=== PATIENT | male | born 1965 | race Caucasian/White ===

== ENCOUNTER 2016-11-01 13:51 | Inpatient (IN) | payer OTHER ==
[~2016-11-01] VITALS: Ht 180.3 cm; Wt 80.5 kg
[2016-11-01 13:52] VITALS: BP 111/69; PULSE 63; RESP 18; O2SAT 97
--- NOTE | 2016-11-01 13:54 | ED.REPORT ---
HPI-General Illness Date of Service Nov 01, 2016 ED Provider: Dr. Sergio Gee D.O. An otherwise healthy 51 year old male presents to the ED via EMS from Urgent Care with intermittent shortness of breath onset four days ago. Associated symptoms include cough, subjective fever, chills, and body aches. He was seen at at onset and again today where he was found to be hypoxic and hypertensive. He was diagnosed with RLL pneumonia, given fluid resuscitation, and placed on ceftriaxone. His labs from today indicate a white blood count of 6.8 with 12% bands, hyponatremia at 128, and lactic acidosis at 3.0. Nursing Notes Stated Complaint: RULE OUT SEPSIS Chief Complaint: FLU/Cold Symptoms Nursing Notes Reviewed: Yes Allergies: Coded Allergies: No Known Allergies (Unverified , 11/01/16) No Active Prescriptions or Reported Meds General Time Seen by MD: 13:54 Chief Complaint Other (Shortness of Breath) Hx Obtained From: Patient Arrived By: Walk-in Sudden in Onset?: No Onset Occurred: 4 days ago Symptom Duration: Since onset Severity: Current: No pain currently Severity: Maximum: No pain Associated with: Reports: Cough, Fever Pertinent Negative: Relieved by nothing Recent Healthcare: Recent doctor visit Past Medical History Past Medical History None reported Past Surgical History None reported Smoking History Unknown if Ever Smoker Ambulatory Status Independent Review of Systems + Hypoxia and hypertension per Urgent Care Full Review of Systems Constitutional: Reports: Chills, Fever (Subjective) Respiratory: Reports: Non-productive cough, Shortness of breath GI: Denies: Vomiting Musculoskeletal: Reports: Myalgia (Body aches) Neurologic: Denies: Bladder dysfunction, Bowel dysfunction Complete sys rev & neg: except as marked. Physical Exam Vital Signs Vital Signs Date Time Temp Pulse Resp B/P Pulse Ox O2 Delivery O2 Flow Rate FiO2 11/01/16 16:04 36.4 11/01/16 15:15 36.6 11/01/16 13:52 36.7 63 18 111/69 97 Room Air Initial VS: Reviewed Head / Eyes: Atraumatic, Normocephalic ENT: Conjunctiva normal, No scleral icterus Neck: Supple, Full range of motion Skin: Warm, Dry, No cyanosis Psychiatric: Mood/affect normal, Behavior normal, Normal thought content General/Constitutional: Awake, Alert Respiratory / Chest: No respiratory distress Impressive crackles and rales in right lung Cardiovascular: Regular rhythm, Heart sounds NL Heart Rate / Rhythm: Positive: Tachycardia (Rate 110) Systolic BP 105 Neurologic: Oriented X3, Speech NL, No motor deficits, No sensory deficits Interpretation & Diagnostics INFLUENZA NEGATIVE X-RAY TWO VIEW FROM URGENT CARE 11/01/16: IMPRESSION: Right lower lobe pneumonia Dictated by: Adan Brown M.D. on 11/01/2016 at 11:04 Lab Results Interpretation Test 11/01/16 15:53 Lactic Acid Level 1.5mmol/L (0.4-2.0) Pulse Oximetry Interpretation Pulse Oximetry: Pulse ox (94%), On room air Re-Eval/Medical Decision Med Decision/Clinical Course Patient presents with signs and symptoms of sepsis: Fever, tachycardia and hypotension. He is found to have a source: Dense right lower lobe pneumonia. Plan for broad-spectrum antibiotics,. IV fluid resuscitation. Lactic acid was elevated in the urgent care. Blood pressure was low in the urgent care. We medicated with a second gram of Rocephin and 500 Zithromax. 2 L of saline were infused. Repeat lactic acid came back normal. Blood pressure was stable. We will admit for IV antibiotics and continued fluid resuscitation. Time of Eval: 16:28 Patient Status: Condition improved Re-Evaluation/Progress Note: Discussed with patient lab results, diagnosis, and plan for admit. Patient agrees with plan for care and all questions were addressed. Consultation : Referral / Consult Name: Robyn Foster MD Consulted With: Hospitalist Call Returned at: 16:12 Blocker And Polisher Gold Wheel: Agrees with eval, Agrees with plan, Accepts admit Counseled Regarding: Diagnosis, Lab results, Need for admission Discharge & Departure Primary Impression: Pneumonia Pneumonia type: due to unspecified organism Laterality: right Lung location : lower lobe of lung Qualified Code: J18.9 - Pneumonia, unspecified organism Additional Impression: Sepsis Sepsis type: sepsis due to unspecified organism Qualified Code: A41.9 - Sepsis, unspecified organism Disposition: ADMITTED TO HOSPITAL Discharge Condition All VS Reviewed: Yes Condition: Stable Referrals: Michael Eng DO (PCP) Scribe Attestation Portions of this note were transcribed by Yaritza Link. IDr. Gee, personally performed the history, physical exam, and medical decision-making; I reviewed and confirmed the accuracy of the information in the transcribed note. Signed by: Giselle Nielsen, 11/01/2016, 16:35 copies to: Michael Eng Todd P DO Nov 01, 2016 13:54 YARITZA LINK Nov 01, 2016 14:29
[2016-11-01] MEDS ORDERED: Azithromycin Inj 500 MG in Dextrose 5% w/Vial Mate 250 ML IV ONE (13:55)
[2016-11-01] MEDS ORDERED: 0.9% Sodium Chloride 1,000 ML IV SCH (13:55)
[2016-11-01] MEDS ORDERED: cefTRIAXone Inj 1,000 MG in Dextrose 5% Minibag Plus 50 ML IV ONE (14:05)
--- NOTE | 2016-11-01 16:33 | PCM.HPMED ---
Subjective Date of Service Nov 01, 2016 Primary Provider: Admitting Physician: Primary Care Physician: Michael Eng DO Attending Physician: Chief Complaint: HISTORY was OBTAINED FROM PATIENT / [facility] NOTES History of present illness 51-year-old male with dry cough/headache/weakness/chills/fevers initially seen by urgent care 1 week ago, presented again today after he fell due to weakness yesterday found to have right lower pneumonia. No recent dental procedures no dysphagia. 2 episodes of choking in the last 10 years he has upper dentures. No trauma to the right chest wall. Not bedridden. Daughter had a head cold preceding his infection. Poor eating habits lately for urination diarrhea 3 days ago but regular stools today. No pleuritic chest pain no sinus congestion no sore throat. In the ER 36.7, 111/69 in urgent care lactic acid 3, creatinine 1.25, AST 78, bandemia 12%, WBC 6.8, platelets 138. On room air. Baseline speaks succintly.normal saline, azithromycin, Rocephin Review of Systems - none of the following - lightheaded / dizziness // acid reflux / n/v // bleeding/bruising / leg swelling / change in voiding / yeast infections / rash ambulates FAMILY HX no asthma SOCIAL HX smoker half pack a day daily alcohol MEDICATIONS none Past Medical/Surgical HX Allergies Coded Allergies: No Known Allergies (Unverified , 11/01/16) PMH Social History Hx Alcohol Use: Yes (DAILY ETOH) Hx Substance Use: No Smoking Status: Unknown if Ever Smoker Exam Vital Signs Vital Sign - Last Date Time Temp Pulse Resp B/P Pulse Ox O2 Delivery O2 Flow Rate FiO2 11/01/16 16:04 36.4 11/01/16 13:52 63 18 111/69 97 Room Air Lab and Diagnostics Labs Exam on admission Room Air NAD A and O x 3 mood affect WNL NC/AT no icterus no injected eyes EOMI PERRL /no pharyngeal lesions/ no oral lesions / hearing intact Supple neck CTAB equal chest rise But significantly diminished breath sounds bilateral / no accessory muscle use / speaks in phrases/ no rrw RRR S1 S2 / no mrg / 2+ radial pulses Soft nt nd + BS no hepatosplenomegaly No edema no cyanosis no ecchymosis of lower extremities No rash / no jaundice WADE symmetrical facies procalcitonin pending lactic acid Pending repeat blood culture pending Influenza pending Sputum culture pending LFTAST elevated Imaging PROCEDURE: X-RAY CHEST, TWO VIEWS ([id number]) INDICATIONS: FEVER AND COUGH X 5 DAYS, TUBULAR BREATH SOUNDS RIGHT BASE TECHNIQUE: 2 views of the chest were acquired. COMPARISON: None. FINDINGS: Surgical changes and devices: None. Lungs and pleura: No pleural effusions or pneumothorax. Dense, lobular alveolar infiltrate right lower lobe consistent with pneumonia. Mediastinum: Mediastinal contours are normal. Heart size is normal. Bones and chest wall: No suspicious bony abnormalities. Soft tissues appear unremarkable. Assessment & Plan Active issues and reason for admission Right lower lobe pneumonia, CAP without recent evidence of acid reflux or dysphasia, with bandemia and lactic acidosis -- PPI for now, no smoking for now, monitor for any evidence of empyema, Rocephin and azithromycin DuoNeb's when necessary O2 -- Sputum culture pending urine strep pending influenza pending -- IV fluid Mild hyponatremia/elevated creatinine likely prerenal VIDAL -- IV fluid mild thrombocytopenia --hold pharmaceutic DVT prophylaxis Chronic issues known prior to admission, present on admission Smoker -When necessary nicotine Diet regular DVT prophylaxis ambulate Code full Disposition inpatient Assessment and plan were discussed with patient family. Robyn Foster MD Nov 01, 2016 16:33
[2016-11-01 16:58] VITALS: BP 113/74; PULSE 65; RESP 16; O2SAT 95
[2016-11-01 17:27] VITALS: BP 136/74; PULSE 64; RESP 18; O2SAT 93
[2016-11-01 17:29] VITALS: BP 136/74; PULSE 64; RESP 18; O2SAT 93
--- NOTE | 2016-11-01 17:30 | NUR ---
ADMIT Report received from Hilaria Walsh RN in ED/ Pt brought onto unit around 1730 via [place]. Transfer to bed, pt noticeably shaky and weak. Initial physical assessment made, no c/o pain/distress. Pt oriented to unit, room, call light. Will make "welcome" video available during shiftman. Had pt order diner, updated plan of care on board. MED REC reviewed with family at bedside, next shift notified to complete admission interventions.
[2016-11-01] MEDS ORDERED: ACET325T51 PO (18:10)
[2016-11-01] MEDS ORDERED: IBUP400T22 PO (18:12)
[2016-11-01] MEDS: 0.9% Sodium Chloride 1,000 ML IV SCH (18:32)
[2016-11-01] MEDS: Pantoprazole 20 mg ER24 Tablet PO SCH (20:34)
[2016-11-01 21:02] VITALS: BP 163/73; PULSE 94; RESP 24; O2SAT 91
[2016-11-01 21:10] VITALS: PULSE 92; RESP 24; O2SAT 93
[2016-11-01] MEDS: Albuterol 2.5 mg/3 mL Inhalation Solution NEB SCH (21:10)
[2016-11-02] VITALS (14 sets, daily range): BP systolic 141–149; BP diastolic 71–88; PULSE 76–99; RESP 26–55; O2SAT 90–95
[2016-11-02] MEDS: Albuterol 2.5 mg/3 mL Inhalation Solution NEB SCH ×6 (00:04→20:49)
[2016-11-02] MEDS: 0.9% Sodium Chloride 1,000 ML IV SCH ×2 (02:37→12:00)
[2016-11-02] MEDS ORDERED: Furosemide 10 mg/mL 4 mL Inj IVPUSH ONE (05:05)
--- NOTE | 2016-11-02 06:48 | NUR ---
Respiratory status Pt has been sickly looking all shift and tachypnic. Pt was placed on 2L via NC. Pt later was very tachypnic and SOB. No change is lung sounds. Md notified and gave order to D/C IV fluids and give X1 does of IV lasix. Urine has been dark shara all night, after receiving lasix Pts urine is now clear and pale. Pt sleeping now and respiratory rate down to 30 breaths per minute. Continues on 6L via oxy mask.
[2016-11-02] MEDS: Pantoprazole 20 mg ER24 Tablet PO SCH ×2 (07:29→21:29)
[2016-11-02] MEDS: Azithromycin Inj 500 MG in Dextrose 5% w/Vial Mate 250 ML IV SCH (07:30)
[2016-11-02 07:56] LABS: Mean Corpuscular Hemoglobin 30.9 pg (27.0-35.0); Mean Corpuscular Volume 88.2 fL (81-100)
[2016-11-02 08:21] LABS: Magnesium 1.8 mg/dL (1.6-2.6)
[2016-11-02] MEDS ORDERED: cefTRIAXone Inj 2,000 MG in Dextrose 5% Minibag Plus 50 ML IV SCH (08:30)
--- NOTE | 2016-11-02 09:19 | NUR ---
Social Work: Screening Data: Pt is a 51 y/o male admitted for pneumonia, sepsis. Pt's PCP is Dr Eng, pt's insurance is [employer]. EMR reviewed. H&P states pt uses alcohol daily, but does not list amount. SUSPENSION CORD TIER will follow up regarding alcohol use to see if a CD assessment is needed. SUSPENSION CORD TIER will continue to follow. Assessment: Pt who is independent at baseline. Plan: SUSPENSION CORD TIER will follow up with pt regarding alcohol use to see if CD assessment is needed. No other d/c planning needs anticipated at this time. SUSPENSION CORD TIER will continue to follow. SLAVA Alnozo
[2016-11-02] MEDS ORDERED: KCl 40 mEq/500 mL D5W(K 3 - 3.7 & Creat < 2) IV ONE (12:05)
--- NOTE | 2016-11-02 15:26 | PCM.PNMED ---
Subjective Date of Service Nov 02, 2016 Subjective 51-year-old male with dry cough/headache/weakness/chills/fevers initially seen by urgent care 1 week ago, presented again today after he fell due to weakness yesterday, he was found to have right lower lobe pneumonia. Patient reports doing okay this morning. Some shortness of breath, no headache , chest pain, or abdominal pain. Without oxygen and any activity his oxygen saturation drops to the mid 80s. Exam Vital Signs Vital Sign - Last Date Time Temp Pulse Resp B/P Pulse Ox O2 Delivery O2 Flow Rate FiO2 11/02/16 06:38 37.5 11/02/16 04:45 81 30 92 Nasal Cannula 2.00 11/02/16 04:20 149/78 Intake and Output 11/01/16 11/01/16 11/02/16 Cumulative From/Thru 15:00 23:00 07:00 11/01/16 13:52 - 11/02/16 06:04 Intake Total 1000 ml 1000 ml 2004 ml 4004 ml Output Total 850 ml 850 ml Balance 1000 ml 1000 ml 1154 ml 3154 ml Intake Oral 718 ml 718 ml IV Total 1000 ml 1000 ml 1286 ml 3286 ml Output Urine Total 850 ml 850 ml # Bowel Movements 1 1 Exam General: Mild distress, well-developed, well-nourished, appropriately interactive HEENT: Normocephalic, atraumatic. External ears without defect. Anicteric sclerae, moist conjunctivae, and no lid lag. Oropharynx free of erythema and cobble stoning with moist mucosa. Neck: Supple with full range of motion. No jugular venous distension. No lymphadenopathy or thyromegaly. Cardiovascular: Regular rate and rhythm with no murmurs, rubs, or gallops appreciated Pulmonary: Decreased breath sounds in right base with no crackles, wheezes, or rhonchi. Increased respiratory effort with use of accessory muscles. Abdomen: Bowel tones present. Soft, nontender, nondistended. No hepatosplenomegaly or masses appreciated. Extremities: No clubbing, cyanosis, edema, or lymphadenopathy appreciated. Skin: Normal temperature, turgor, and texture; no rash, ulcers, or subcutaneous nodules appreciated. Neurological: Cranial nerves grossly intact. Normal muscle strength, tone, and bulk. No known gait impairment. Psychiatric: Normal mood and affect. Alert and oriented to person, place, and time. IVs and Medications IV Fluids 80 mL per hour normal saline Lab and Diagnostics Result Diagram: 11/02/16 0715 Assessment & Plan 51-year-old male with dry cough, headache, weakness, fever, chills for the last week with increasing weakness and ground-level fall the day prior to admission was found to have right lower lobe pneumonia. Right lower lobe pneumonia, CAP with Sepsis -- PPI for now, no smoking for now, monitor for any evidence of empyema, Rocephin and azithromycin -- DuoNeb's when necessary O2 -- Sputum culture pending sample acquisition -- urine strep and Legionella ordered -- Viral PCR ordered -- influenza screen negative -- IV fluid normal saline at 80 mL/hour -- IV Rocephin and Azithromycin Mild hyponatremia/elevated creatinine likely prerenal VIDAL, present on admission , resolved -- IV fluid Hypokalemia -- Replace with IV potassium mild thrombocytopenia -- hold pharmaceutic DVT prophylaxis Alcohol use -- Patient reportedly drinks at least 2 alcoholic beverages per night his last drink was 6 days ago. -- CIWA protocol due to concern for withdrawal by nursing Chronic issues known prior to admission, present on admission Smoker -When necessary nicotine patch Diet regular DVT prophylaxis ambulate Code full Disposition inpatient. Pain Evaluation: Adequate Pain Control GI Prophylaxis: Proton Pump Inhibitor VTE Prophylaxis: SCDs Resuscitation Status: CPR: Attempt Resuscitation Attending Statement The patient was seen and examined together with Dr. Oliva on 11/02/2016 and I agree with the history, exam and plan as outlined in the note above. Tonja Oliva DO Nov 02, 2016 08:10 Arnie Barros MD Nov 10, 2016 13:45
--- NOTE | 2016-11-02 19:10 | NUR ---
Respiratory status Pt. tachypnic all day today with RR ranging from 30-44. Continuous pulse ox on. oxygenation ranging from 90-96% when he wears oxy mask 5-7 L. Pt. takes off mask at times stating that it is annoying and uncomfortable. Desats to 85-88 when not wearing mask. Educated patient and family on importance of keeping the mask on. Pt. states that his breathing feels better than last night, despite continued tachypnea. Alert and oriented, but displays some confusion at times. Today he was asking where his house keys were, thinking that he needed to lock the room door. Collaborated extensively with RT, charge nurse and MD and will continue to monitor.
[2016-11-02] MEDS: Albuterol-Ipratropium 3 mL Inhalation Solution NEB SCH (20:30)
[2016-11-02] MEDS: Ampicillin-Sulbactam Inj 3,000 MG in 0.9% Sodium Chloride 100 ML IV SCH (21:27)
[2016-11-02] MEDS: guaiFENesin 600 mg ER12 Tablet PO SCH (21:28)
[2016-11-03] VITALS (18 sets, daily range): BP systolic 108–171; BP diastolic 63–88; PULSE 51–110; RESP 22–55; O2SAT 87–99
[2016-11-03] MEDS: Albuterol-Ipratropium 3 mL Inhalation Solution NEB SCH ×4 (01:05→12:29)
[2016-11-03] MEDS: 0.9% Sodium Chloride 1,000 ML IV SCH ×2 (02:28→16:37)
[2016-11-03] MEDS: Ampicillin-Sulbactam Inj 3,000 MG in 0.9% Sodium Chloride 100 ML IV SCH ×2 (02:41→08:39)
--- NOTE | 2016-11-03 05:36 | NUR ---
Febrile Status Pt febrile at beginning of shift. Very tachypnic at 55 breaths per minute and quite diaphoretic. Temp 39.6. Pt was given Tylenol and fan was turned on and bed linen removed. Pts temp decreased minimally to 38.9 but shortly after caleb to 39.1. Wet washcloths used to cool Pt. Md notified and gave order for new antibiotic and to give ibuprofen. Interventions decreased temperature to 37.8, and eventually to 36.4 Pt reports feeling significantly better.
[2016-11-03 06:42] LABS: BASOPHILS % (AUTO) 0.1 % (0-3); EOSINOPHILS % (AUTO) 0.9 % (0-5); MONOCYTES % (AUTO) 3.6 % (4-12); Mean Corpuscular Hemoglobin 31.1 pg (27.0-35.0); Mean Corpuscular Volume 88.1 fL (81-100); NEUTROPHILS % (AUTO) 86.9 % (40-74); Platelet Count 144 bil/L (150-400)
[2016-11-03] MEDS ORDERED: 0.9% Sodium Chloride 250 ML ONE ×2 (08:23→22:20)
[2016-11-03] MEDS ORDERED: KCl 40 mEq/D5W 500 mL 40 MEQ in IV Premix 1 EACH IV ONE (08:30)
[2016-11-03] MEDS: guaiFENesin 600 mg ER12 Tablet PO SCH ×2 (08:36→20:41)
[2016-11-03] MEDS: Multivit-Miner-Folic Acid-Iron Tablet PO SCH (08:36)
[2016-11-03] MEDS: Pantoprazole 20 mg ER24 Tablet PO SCH ×2 (08:36→20:41)
[2016-11-03] MEDS: Azithromycin Inj 500 MG in Dextrose 5% w/Vial Mate 250 ML IV SCH (08:40)
--- NOTE | 2016-11-03 08:46 | DRSVH ---
PROCEDURE: X-RAY CHEST ONE VIEW, PORTABLE ([id number]) INDICATIONS: RLL pneumonia TECHNIQUE: One view of the chest was acquired. COMPARISON: [facility], CR, XR CHEST 2VW, 11/01/2016, 10:34. FINDINGS: Surgical changes and devices: None. Lungs and pleura: Interval increase in diffuse air space opacity within the right lung and left lung remains clear. Small right pleural effusion is likely present suggesting parapneumonic effusion. Mediastinum: Mediastinal contours appear normal. Heart size is normal. Bones and chest wall: No suspicious bony lesions. Overlying soft tissues appear unremarkable. IMPRESSION: Increasing diffuse airspace opacity throughout the right lung suggesting worsening pneumo svetlana. Dictated by: Blake Stubbs RRA Interpreted: Dread Royal MD on 11/03/2016 at 8:44 Transcribed by: JASMEET on 11/03/2016 at 8:45 Approved by: Dread Royal M.D. on 11/03/2016 at 9:04
[2016-11-03] MEDS: cefTRIAXone 2,000 mg/D5W 50 mL IV Minibag Plus IV SCH ×2 (12:49)
--- NOTE | 2016-11-03 14:26 | ABG ---
DateTimeAnalyzed 14:20:00 -_ pH ____7.442 - 7.350 7.450 pCO2 ___34.1__ -mmHg 35.0 45.0 pO2 ___51.6__ -mmHg 69.0 116 HCO3- ___22.9__ -mmol/L 22.0 26.0 ABE ___-0.1__ -mmol/L -2.0 2.0 tHb ___15.0__ -g/dL O2Hb ___86.0__ -% COHb ____1.0__ -% MetHb ____1.0__ -% sO2 ___87.8__ -% 25.0 FIO2 __100.0__ -% Drawn By JJ - Date/Time Notified____ 14:26:00 -_ Spontaneous_RR ___55.0__ -b/min Liter_Flow ___15.0__ -L/min Oxygen Device 1 NON RE-TERRI - Notified By JJ - Notified Whom __DR LINK - B 745 -mmHg tO2 ___18.1__ -Vol% Tello test N/A -
--- NOTE | 2016-11-03 14:27 | NUR ---
Respiratory distress Pt satting in the 70's on 7L Oxymask, Dr Zamora and Dr Myers in room, as well as pt's . Oximeter probes changed to 1 finger probe and 1 ear probe, sats continue to be difficult to recover. Stat CXR and stat ABGs ordered, pt switched to NRB, o2 needs up to 13L/min. coagulant dipper present. RR in 50's, pt's lips pale, and pt having sigfnificant rigors, ax temp 39.0, 650mg PO APAP given. Supraclavicular, suprasternal, and subcostal retractions noted. Sats up to 92% on 13L NRP, rigors decreased. Plan to transfer to 2015, aware
--- NOTE | 2016-11-03 14:31 | DRSVH ---
PROCEDURE: X-RAY CHEST ONE VIEW, PORTABLE ([id number]) INDICATIONS: increased O2 need TECHNIQUE: One view of the chest was acquired. COMPARISON: [facility], CR, XR CHEST 2VW, 11/01/2016, 10:34. [facility], CR , XR CHEST 1VW (PORTABLE), 11/02/2016, 20:36. FINDINGS: Surgical changes and devices: None. Lungs and pleura: There are increased bilateral airspace opacities consistent with worsening of pneu monia. Persistent right lower lobe consolidation possible small right pleural effusion. No pneumothor ax. Mediastinum: Mediastinal contours appear normal. Heart size is normal. Bones and chest wall: No suspicious bony lesions. Overlying soft tissues appear unremarkable. IMPRESSION: Progressive worsening of bilateral pneumonia. Dictated by: Dread Royal M.D. on 11/03/2016 at 14:22 Approved by: Dread Royal M.D. on 11/03/2016 at 14:30
--- NOTE | 2016-11-03 15:28 | NUR ---
RETAIL ROUTE SUPERVISOR consult received. Evaluation on hold as pt is being transferred to CCU. RETAIL ROUTE SUPERVISOR will follow and evaluate when pt is appropriate.
--- NOTE | 2016-11-03 15:42 | NUR ---
Transfer Transferred to 2014, report given to Mary Avilez, family aware of transfer.
[2016-11-03] MEDS ORDERED: 0.9% Sodium Chloride 250 ML IV ONE (16:05)
--- NOTE | 2016-11-03 17:12 | DRSVH ---
[facility] [address] [place] [address] Echocardiogram Report Name: SERENA HAGEN te: 11/03/2016 Height: 71 in Hospital Exam Location: [facility] Weight: 184 lb Gender: Male BSA: 2.0 m2 : 1965 Age: 51 yrs BP: 129/63 mmHg Reason For Study: TACHYPNEIC Ordering Physician: Performed By: Cristy Phillips Referring Physician: Michael Eng Interpretation Summary The left ventricle is normal in size. The ejection fraction is estimated to be 50-55%. Wall motions as stated below. The right ventricle is normal in size and function. There is mild mitral regurgitation. There is trace tricuspid regurgitation. The right ventricular systolic pressure is estimated at 39 mmHg assuming a right atrial pressure of 3 mm Hg. There is a small right-sided pleural effusion. Procedure: A two-dimensional transthoracic echocardiogram with color flow and Doppler was performed. The study quality was technically adequate. There is no prior echocardiogram noted for this patient. The patient was in normal sinus rhythm during the exam. Left Ventricle: The left ventricle is normal in size. There is normal left ventricular wall thickness. There is no thrombus. The ejection fraction is estimated to be 50-55%. Septal motion is consistent with conduction abnormality. There is basal anteroseptal wall hypokinesis. There is basal inferoseptal wall hypokinesis. There is basal inferior wall hypokinesis. Spectral Doppler of the mitral valve is reversed, with an E/A wave ratio < 1.0. The E/E'is normal. Right Ventricle: The right ventricle is normal in size and function. Atria: Both atria are normal in size. There is no Doppler evidence for an interatrial shunt. Mitral Valve: The mitral valve leaflets are slightly calcified. There is mild mitral regurgitation. Aortic Valve: The aortic valve opens well. The aortic valve is not well visualized. There is no aortic valve stenosis. No aortic regurgitation is present. Tricuspid Valve: The tricuspid valve is normal. The right ventricular systolic pressure is estimated at 39 mmHg assuming a right atrial pressure of 3 mm Hg. There is trace tricuspid regurgitation. Pulmonic Valve: The pulmonic valve is not well visualized. There is trace pulmonic regurgitation. Great Vessels: The aortic root is normal size. The ascending aorta is at the upper limits of normal in size. The IVC is of normal diameter and collapses greater than 50% with a sniff. This suggests a low right atrial pressure of 3 mm Hg. Pericardium/ Pleura There is no pericardial effusion. There is a small right-sided pleural effusion. MMode/2D Measurements & Calculations LVIDd: 4.7 cm RA long axis LVOT diam LVIDs: 3.2 cm LA A2 area: 19.6 cm FS: 31.1 % LA A4 area: 17.7 cm RA area Ao root diam EPSS: 0.46 cm LA length (vol): 4.9 cm IVSd: 1.0 cm LA vol: 59.7 ml : 14.3 cm Aortic Jxn LVPWd: 0.88 cm LA vol index RA vol: 35.9 ml RA asc Aorta : 17.6 mm2 Diam: 3.3 cm IVC diam: 1.5 cm LV leigh. diameter/BSA LV sys. diameter/BSA RVD1 (basal) TAPSE: 2.6 cm (cm/m^2): 2.3 (cm/m^2): 1.6 Doppler Measurements & Calculations Ao V2 max MV E max dino MV E/A: 1.2 TR max dino : 169.7 cm/sec : 71.6 cm/sec Med Peak E' Dino : 300.7 cm/sec Ao max PG MV A max dino TR max PG : 11.5 mmHg : 61.5 cm/sec E/E' med: 5.9 : 36.2 mmHg Ao mean PG MV P1/2t: 62.5 msec Pulm A Revs Dur PA V2 max : 113.5 cm/sec LVOT Max Dino MV A dur: 0.11 sec PA mean PG : 151.3 cm/sec PA Accel Time NICHOLAS(I,D): 4.6 cm : 0.12 sec sev ratio MV dec time MV P1/2t max dino Ao V2 mean LV V1 max PG : 0.21 sec : 108.8 cm/sec MVA(P1/2t): 3.5 cm2 Ao V2 VTI: 25.2 cm LV V1 VTI NICHOLAS(V,D): 4.4 cm2 : 23.3 cm PA V2 mean NICHOLAS indexed to ANNABELLE Whaleys Dur - MV A : 74.7 cm/sec (cm^2/m^2): 2.2 Dur: -0.03 msec Reading Physician:RA
[2016-11-03 18:13] LABS: APPEARANCE,URINE CLEAR (CLEAR,HAZY); COLOR,URINE YELLOW (YELLOW); OCCULT BLOOD,URINE MODERATE (NEGATIVE); UROBILINOGEN,URINE NORMAL (NORMAL)
--- NOTE | 2016-11-03 18:25 | NUR ---
Increased respiratory rate Patient arrived in CCU after 1500 today. Patient was awake and oriented to placed and persona. Patient denied having any discomfort. RR was 35-52 shallow and with great effort. Patient was using his accessory respiratory muscles and his abdomen while breathing. RT placed the patient on High Flow O2 nasal canula at 60L and 100%- oxygen saturation was 94-98% with tachypnea continuing- attending MD and rock wool applicator were aware. 2h after arriving in CCU patient appeared to be more at ease. He continued to be tachypneic with RR 28-35 with oxygen saturation 95-97%. Patient stated: "my breathing fells to be easier." Quintana catheter was placed at 1705 today patient had about 200 ml of shara urine empted in to collection bag shortly after Quintana was placed- urine sample was send to the lab as ordered. one liter of NS bolus was given- continue assessment.
--- NOTE | 2016-11-03 19:36 | PCM.PNMED ---
Subjective Date of Service Nov 03, 2016 Subjective 51-year-old male with dry cough/headache/weakness/chills/fevers initially seen by urgent care 1 week ago, presented again today after he fell due to weakness yesterday, he was found to have right lower lobe pneumonia. Patient continues to be tachypnea this morning despite being on 7 L oxymask. He reports feeling better however with no chest pain, headache, abdominal pain. Later in the day patient developed rigors and had O2 saturation down into the 70s. He was transferred to the critical care unit and placed on high flow oxygen. Exam Vital Signs Vital Sign - Last Date Time Temp Pulse Resp B/P Pulse Ox O2 Delivery O2 Flow Rate FiO2 11/03/16 06:59 57 11/03/16 05:58 35.8 28 108/63 94 OxyMask 7.00 Intake and Output 11/02/16 11/02/16 11/03/16 Cumulative From/Thru 15:00 23:00 07:00 11/01/16 13:52 - 11/03/16 06:26 Intake Total 4084 ml 1130 ml 9218 ml Output Total 1775 ml 2625 ml Balance 2309 ml 1130 ml 6593 ml Intake Oral 2350 ml 3068 ml IV Total 1734 ml 1130 ml 6150 ml Output Urine Total 1775 ml 2625 ml # Bowel Movements 1 2 Exam General: Mild distress, well-developed, well-nourished, appropriately interactive HEENT: Normocephalic, atraumatic. External ears without defect. Anicteric sclerae, moist conjunctivae, and no lid lag. Oropharynx free of erythema and cobble stoning with moist mucosa. Neck: Supple with full range of motion. No jugular venous distension. No lymphadenopathy or thyromegaly. Cardiovascular: Regular rate and rhythm with no murmurs, rubs, or gallops appreciated Pulmonary: Decreased breath sounds in right base with diffuse crackles, wheezes , and rhonchi. Increased respiratory effort with use of accessory muscles. Abdomen: Bowel tones present. Soft, nontender, nondistended. No hepatosplenomegaly or masses appreciated. Extremities: No clubbing, cyanosis, edema, or lymphadenopathy appreciated. Skin: Normal temperature, turgor, and texture; no rash, ulcers, or subcutaneous nodules appreciated. Neurological: Cranial nerves grossly intact. Normal muscle strength, tone, and bulk. No known gait impairment. Psychiatric: Normal mood and affect. Alert and oriented to person, place, and time. Lab and Diagnostics Result Diagram: 11/03/16 0603 11/02/16 0715 Assessment & Plan 51-year-old male with dry cough, headache, weakness, fever, chills for the last week with increasing weakness and ground-level fall the day prior to admission was found to have right lower lobe pneumonia. 1. Right lower lobe pneumonia, CAP without recent evidence of acid reflux or dysphasia, with bandemia and lactic acidosis -- PPI for now, monitor for any evidence of empyema, Rocephin, and metronidazole , and azithromycin -- DuoNeb's when necessary O2 -- Sputum culture pending sample acquisition -- urine strep and pending -- Viral PCR negative -- influenza screen negative, MRSA screen negative -- IV fluid normal saline at 80 mL/hour -- Due to increasing severity and resistance to treatment cryptococcus antigen and HIV status tested and pending. -- DuoNeb every 4 hours, guaifenesin every 12 hours 2. Mild hyponatremia/elevated creatinine likely prerenal VIDAL, present on admission, resolved -- IV fluid 3. Hypokalemia, present on admission, active -- Replace with IV potassium 4. mild thrombocytopenia -- hold pharmaceutic DVT prophylaxis 5. Alcohol use -- Patient reportedly drinks at least 2 alcoholic beverages per night his last drink was 6 days ago. -- CIWA protocol due to concern for withdrawal by nursing Chronic issues known prior to admission, present on admission Smoker -When necessary nicotine patch Diet regular DVT prophylaxis SCDs Code full High risk meds include IV diazepam however patient has not received this for CIWA protocol. Disposition inpatient. GI Prophylaxis: Proton Pump Inhibitor VTE Prophylaxis: SCDs VTE Mechanical Devices: Intermittant Pneumatic CD Resuscitation Status: CPR: Attempt Resuscitation Attending Statement The patient was seen and examined together with Dr. Oliva on 11-03-16 I agree with the history, exam and plan as outlined in the note above. Tonja Oliva DO Nov 03, 2016 07:22 Sharon Elias MD Nov 04, 2016 14:50
[2016-11-03 21:06] LABS: Magnesium 1.9 mg/dL (1.6-2.6)
[2016-11-03] MEDS ORDERED: KCl 40 mEq/500 mL D5W(K 3 - 3.7 & Creat < 2) IV ONE (21:35)
--- NOTE | 2016-11-03 23:22 | CONS ---
[address] [address] CONSULTATION REPORT PATIENT: SERENA HAGEN : 1965 MR#: [id number] ADMIT: 11/01/2016 JOB ID: [id number] DATE OF SERVICE: 11/03/2016 REQUESTING PHYSICIAN: Charmaine Mcdaniel DO. REASON FOR CONSULT: Pneumonia with respiratory failure. HISTORY OF PRESENT ILLNESS: The patient is a 51-year-old male admitted 48 hours ago for symptoms of pneumonia. He is not able to give much of a history as it makes him too tachypneic and to some extent hypoxemic. Has been transferred down from the third floor on a high-flow nasal cannula. Much of the history obtained from the and the chart. Apparently, he was doing fairly well until about eight days ago. Then, he just began not feeling well. No specifics. Maybe a slight headache. Maybe a nonproductive cough. He started to run fevers and went to urgent care. There, he was told he had a respiratory tract infection, was given antibiotics. Continued to feel worse. Prior to going to the urgent care he had a temperature of 102, or up to 103. After visiting the clinic, he developed a temp as high as 104, prompting his visit to the emergency department. The patient has continued to have some headache. No chest pain, either pleuritic or otherwise, though does have the sensation of not being able to take a deep breath. No rash. No myalgias or arthralgias. No sore throat. Had been eating well up until this, time but then his appetite diminished, as did his oral intake. No prior history of lung disease, nor pneumonia. Is a smoker. 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 States that a water cooling tower for air conditioning at the [employer] is being replaced, and that has been ongoing for the last month. States his breathing is a bit better since being put on the high-flow nasal cannula. Pets: Dog. Geographic history: Patient was born and raised in [facility]. Did travel to [facility] but not recently. Smoke history: Continues to smoke. Alcohol: Two beers a day up to unknown number of beers a day at times. OBJECTIVE: Temperature 37.9 with T-max being 39. The patient has been afebrile since the evening of November 01, since being admitted to the hospital. Pulse mid 90s. Blood pressure 122/63. O2 sat on non-rebreather mask, FiO2 of 1, with flow of 60 L a minute is 97%. Respiratory rate varies between high 40s and low 50s if speaking or moving around, to mid to low 30s at times, settling more in the high 30s for the most part. General appearance: Well-developed, well-nourished, ill-appearing individual, rather tachypneic, seems diaphoretic, taking somewhat shallow breaths, breathing rapidly. Able to converse, though he does get a bit more tachypneic and O2 sats drop to the low 90s. Nose and throat could not be examined. Lymph nodes are not palpable. Chest: Good breath sounds on the left, clear. Somewhat diminished breath sounds in the right upper and mid lung field with almost absent breath sounds in the right base. Mild use of accessory muscles at rest. Heart: Rapid rate. Regular rhythm. Abdomen: Soft. Nondistended. Nontender. Liver and spleen not palpable. No masses were palpable. Bowel tones present. Extremities: Warm. Somewhat warm lower extremities. Not particularly diaphoretic. No edema. LABORATORY DATA: Shows a white count of 8600 with 86 polymorphonuclears, 7 lymphs, 3 monocytes. No left shift. Hemoglobin 13.3. Platelet count 144,000 and stable. Sodium 136, potassium 3.3, chloride 99, CO2 is 24, BUN 14, creatinine 0.7 down from 1.03 yesterday, calcium 7.5 with albumin of 2.1. Total bilirubin 0.6, AST moderately elevated 164; 50 units per liter upper limits of normal. ALT mildly elevated at 51, alkaline phos normal at 50. ProBNP elevated at 1671. Procalcitonin on admission was 20.14, has dropped to 8.30 today. Chest x-ray on admission November 02, 2016, shows diffuse airspace disease in the right lung, mostly the lower and mid lung field. Left lung was clear. Repeat film this morning shows increasing airspace opacities most in the right lower and mid lung field. Radiology believes there are bilateral infiltrates. Arterial blood gases, when the patient described as having severe rigors and not breathing very well, on a mask showed a pO2 of 51 on 15 L flow, pCO2 34, pH 7.44, bicarb 22.9. CURRENT ANTIBIOTICS INCLUDE: Ceftriaxone started today, metronidazole started today, azithromycin started yesterday. Yesterday, had received Unasyn given last evening. Received ceftriaxone yesterday morning. Therefore, has received two days of ceftriaxone and started on azithromycin and metronidazole today, receiving Unasyn two doses, one last night and one this morning. ASSESSMENT: Pneumonia. Quite severe. I will not be surprised if he requires intubation later today or tomorrow. Slaughterhouse associated with mycoplasma, Mycobacterium kansasii. Water towers for air conditioning system associated with Legionella. I think we need to cover for Legionella, as well as community-acquired pneumonia such as pneumococcal pneumonia. I am not sure his drinking history qualifies for alcoholism, but will probably also consider covering for non-Pseudomonas gram negatives as well. Other considerations would be initial flu-like illness with a superinfection with either strep or staph. However, viral PCR is negative which would argue strongly against presence of influenza. MRSA screen is negative. I doubt the nebulizer is helping. I do not think we need to continue the nebulizer. He is currently getting an echocardiogram. Suspect this will be relatively normal, but awaits to be seen. Would wonder about adding Levaquin to his regimen. Not really thinking of anaerobes per se. I think the major coverage needs to be for strep and possibly Legionella disease. Less likely, non-Pseudomonas gram negatives. Continue the ceftriaxone, which should be adequate. Azithromycin would be acceptable for his Legionella, though possibly might consider Levaquin instead. Do not know that we need to continue the metronidazole at this point. I think it might be very helpful to obtain an ID consult on this gentleman to assist with management of what appears to be relatively progressive pneumonia. PLAN: 1. Consider ID consult. 2. Consider ceftriaxone and Levaquin for management of pneumonia in the intensive care unit. 3. Continue high flow. 4. Low threshold for intubation. TIME: Spent so far in critical care 52 minutes. Thank you so much Dr. Mcdaniel for asking me to see this most ill individual. Will follow his respiratory and infectious process closely along with you.
--- NOTE | 2016-11-03 23:53 | CONS ---
[address] [address] CONSULTATION REPORT PATIENT: SERENA HAGEN : 1965 MR#: [id number] ADMIT: 11/01/2016 JOB ID: [id number] DATE OF SERVICE: 11/03/[address] Mcdaniel for this timely consult. REASON FOR CONSULTATION: Pneumonia with respiratory failure requiring ICU admission. HISTORY OF THE PRESENT ILLNESS: The patient is a previously relatively healthy 51-year-old gentleman. He states that he was doing well and functioning completely normally until eight days ago. At that time, he started to develop some weakness, malaise, fever perhaps, and just nonspecific feeling of being ill. This slowly worsened over three or four days and then he gradually started this past weekend to develop a dry cough, as well as more fever, worsening chills, sweats, severe headache and some right pleuritic chest pain. This eventually led him to the urgent care center on October 31, where he was told he probably had a viral process. It is notable at that time apparently he and his report that he had a fever of 104. In any event, he went home but then returned to the urgent care the next day, where a chest x-ray showed a significant right greater than left pulmonary infiltrate and he was admitted for treatment of pneumonia. The patient reports no sick contacts except for a daughter who had a head cold prior to his infection a week or two ago, but he did not have the same symptoms she did by any means. He notes that as part of this eight day illness his oral intake has dramatically declined, both in terms of food, as well as in terms of just drinking, and he has fairly rapidly worsened over the past 72 hours. The patient was admitted to this facility late on November 01 and started on appropriate antibiotics, including azithromycin and ceftriaxone, for presumptive community-acquired pneumonia. Despite that, the patient has actually worsened considerably and this afternoon required moving to the ICU because of progressive respiratory distress and the need for high-flow nasal oxygen. The patient tells me that some of his worse symptoms include a severe headache, sinus pain, right pleuritic chest pain, ongoing shortness of breath which is quite severe, and just general myalgias and arthralgias. He has not been troubled at all by genitourinary symptoms. While in the hospital here he has developed diarrhea though and this has led to the ordering of a stool for C diff and placement of the patient in isolation for C. diff, but the diarrhea actually did not start until he was admitted to the hospital and placed on antibiotics. PAST MEDICAL HISTORY: Is reported to be entirely negative. He specifically denies underlying cardiac or pulmonary disease. No diabetes, hypertension, HIV, malignancy or thyroid disease is reported. MEDICATIONS: The patient takes no outpatient medicines. SOCIAL HISTORY: The patient is a long-time cigarette smoker, quitting only during this illness as he has progressively gotten worse, just before admission. He drinks 2-3 cans of beer per day. He has never used meth, heroin or any illicit drugs. 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 He and his family are currently living at [facility], which is on [place], in a cabin which the report is sometimes quite elysia and drafty. FAMILY HISTORY: Negative for TB, including parents, siblings and children. REVIEW OF SYSTEMS: Was done. The patient states he has considerable headache which has been present since the onset of the illness. He also has some pressure behind his eyes which is quite severe and he feels like his "sinuses hurt." He has no pain with lateral motion of the eyes and his vision is unaffected. No sore throat. No trouble swallowing. No episodes of choking recently. No periods of unconsciousness recently. No stiff neck. He has had the pulmonary symptoms described above, which mainly consist of a dry cough, right pleuritic chest pain and air hunger now basically due to his worsening shortness of breath. Some minimal nausea and anorexia, but no vomiting. He has started to have loose stools here in the hospital. No urgency, frequency or dysuria. The patient has become so weak that on Monday, the day he went to the urgent care the first time, he actually fell and struck his right chest on the ground, so it is not clear how much of his right pleuritic chest pain is due to pneumonia and how much is due to falling and striking his right side. He has had no swelling of the joints. He has had myalgias and arthralgias. He has been so weak he has had difficulty with gait and his said that at times he seemed almost confused due to the severity of this illness. Remainder of the review of systems is negative. PHYSICAL EXAMINATION: Reveals a febrile gentleman. Temp was 38.6 yesterday afternoon, currently 37.9. His respiratory rate is approximately 35 on high-flow nasal oxygen. His blood pressure is about 130/70 and stable. He is saturating well on the high-flow nasal oxygen. Examination of the head reveals no trauma. The sinuses are minimally tender. The eyes with extraocular movements that are intact. No conjunctival or scleral abnormalities. Oral cavity without thrush, hairy leukoplakia or pharyngitis. The neck is supple and without adenopathy or JVD. Patient's mental status this afternoon is completely clear. Sitting the patient up and listening was difficult in terms of getting into position, but it was worthwhile in that the patient has really poor ventilation bilaterally. There is some scattered wheezes and coarse rales heard throughout both lung silva, more on the right than the left, and it is impressive how little air he is moving. Cardiac tones very tachycardic and regular. No murmur can be appreciated at that speed. The patient's abdomen is soft, nontender, without organomegaly or ascites. He does not have a Quintana catheter but the nurse just walked into the room and plans to give him one. There is no suprapubic fullness. No abnormalities of the inguinal or femoral lymph nodes. His joints are without effusion. There is no peripheral edema. His strength is about 4/5 due to his acute illness, but he has no focal weakness in the extremities, no sensory deficit, and as mentioned no skin rash whatsoever. Thyroid is normal. LABORATORIES: Include white count interestingly only 6100 on admission and now 8600, the diff 87% segs but no bands are noted. Creatinine is 0.74 today. AST is 164, ALT is 51. His BNP is 1671. His albumin 2.1. Procalcitonin 20 on admission, 13 yesterday, and 8.3 today. Serologic studies, include an HIV which is pending. Micro studies: Blood cultures admission are negative. Multiplex respiratory PCR negative. MRSA screen negative. IMAGING: Was reviewed. The patient has extensive bilateral infiltrates. This is especially impressive in the right lower lobe, but there are bilateral opacities. Left lung was not nearly as involved on yesterday's chest x-ray and has gotten worse. IMPRESSION: This is a gentleman who apparently was in his usual state of good health except for some ongoing cigarette smoking as recently as seven or eight days ago. He then developed nonspecific fever, chills, sweats, myalgias, eventually cough and right pleuritic chest pain, and now worsening shortness of breath with associated high fevers. This led to his admission two days ago on November 01 and he was appropriately started on azithromycin and ceftriaxone. Blood cultures, MRSA screen and multiplex PCR have all proved negative. One major concern I would have in this patient who has extensive infiltrates, high fevers, elevated LFTs and diarrhea would be Legionnaires' disease, and we have not been able to collect apparently the urine for the pneumococcal and Legionella urine assays. I have asked the nurse to do this as soon as possible in hopes of making a diagnosis, perhaps of Legionnaires' and/or less likely pneumococcal disease. 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 I [place] certain [place] predis[place] him to per se. The patient is a fairly heavy smoker and Moraxella cannot be excluded, but the severity of his illness would incline me to think this is more likely pneumococcal or Legionella. RECOMMENDATIONS: 1. Urine will be obtained and sent for Legionella and pneumococcal antigens as soon as possible. 2. I have asked the team to send an HIV as soon as possible. Patient tells me he has been tested, is negative, and is monogamous, but nonetheless, we should make sure that is the case as it would take us to a whole different direction if positive. 3. Cryptococcal antigen will be ordered in the unlikely event that this is cryptococcal pneumonia. 4. I agree with the current antibiotics which include azithro and ceftriaxone. Based on what we know about the patient he is not a risk for Pseudomonas and I think MRSA pneumonia would be unlikely in a patient who has had no contact with the medical system, nor any history of skin or soft tissue infection, and whom we know already has a negative MRSA screen of the nares. 5. This case discussed extensively with the team and the CTs and other scans carefully reviewed. Thank you very much for this complex consultation. I will be following this interesting patient with you in the coming days.
[2016-11-04] VITALS (13 sets, daily range): BP systolic 123–139; BP diastolic 55–73; PULSE 61–87; RESP 32–48; O2SAT 91–99
[2016-11-04 03:56] LABS: BASOPHILS % (AUTO) 0.2 % (0-3); EOSINOPHILS % (AUTO) 0.7 % (0-5); MONOCYTES % (AUTO) 3.9 % (4-12); Mean Corpuscular Hemoglobin 31.4 pg (27.0-35.0); Mean Corpuscular Volume 87.5 fL (81-100); NEUTROPHILS % (AUTO) 88.2 % (40-74); Platelet Count 197 bil/L (150-400)
--- NOTE | 2016-11-04 05:55 | NUR ---
Respiratory, mentation VS as noted. Weaned O2 through the night per RT from initially 100% Fio2 at 60l to currently 60% 55l with sats mid 90s. Becomes very short of breath with repositioning in bed. Encouraged to cough and deep breath. Easily aroused through the night and is appropriate. Taking fluids without difficulties. Quintana cath in place with dark shara uop. Spouse at bedside through the night. Potassium at HS 3.5 replaced per K/Mag protocol with followup K+ 4.1.
[2016-11-04] MEDS: guaiFENesin 600 mg ER12 Tablet PO SCH ×2 (08:22→19:52)
[2016-11-04] MEDS: Pantoprazole 20 mg ER24 Tablet PO SCH ×2 (08:22→19:52)
[2016-11-04] MEDS: Multivit-Miner-Folic Acid-Iron Tablet PO SCH (08:22)
[2016-11-04] MEDS: 0.9% Sodium Chloride 1,000 ML IV SCH ×3 (08:22→15:54)
[2016-11-04] MEDS: cefTRIAXone 2,000 mg/D5W 50 mL IV Minibag Plus IV SCH ×2 (08:23)
[2016-11-04] MEDS: Azithromycin Inj 500 MG in Dextrose 5% w/Vial Mate 250 ML IV SCH (08:23)
--- NOTE | 2016-11-04 08:27 | DRSVH ---
PROCEDURE: X-RAY CHEST ONE VIEW, PORTABLE ([id number]) INDICATIONS: pneumonia TECHNIQUE: One view of the chest was acquired. COMPARISON: [facility], CR, XR CHEST 1VW (PORTABLE), 11/03/2016, 14:02. FINDINGS: Surgical changes and devices: None. Lungs and pleura: No significant change in bilateral airspace opacities consistent with pneumonia and /or edema. Persistent right lower lobe consolidation possible small right pleural effusion. No pneumo thorax. Mediastinum: Mediastinal contours appear normal. Heart size is normal. Bones and chest wall: No suspicious bony lesions. Overlying soft tissues appear unremarkable. IMPRESSION: 1. Diffuse pulmonary edema and/or pneumonia similar to prior examination and persistent right pleural effusion is present. Dictated by: Blake MOON Interpreted: Leyla Harris MD on 11/04/2016 at 8:25 Transcribed by: KIARA on 11/04/2016 at 8:27 Approved by: Leyla Harris M.D. on 11/04/2016 at 16:00
--- NOTE | 2016-11-04 08:33 | PROG NOTE ---
[address] [address] PROGRESS NOTE PATIENT: SERENA HAGEN : 1965 MR#: [id number] ADMIT: 11/01/2016 JOB ID: [id number] DATE: 11/04/2016 INFECTIOUS DISEASE FOLLOW UP NOTE: REASON FOR FOLLOW UP: Legionnaires pneumonia with respiratory failure. INTERVAL HISTORY: The patient has had a challenging night in the ICU. He reports having some subjective fever and chills. No headache or sore throat, but he is quite short of breath and remains on the high-flow nasal oxygen. He also has a cough productive of copious thin sputum and perhaps some mild pleuritic chest pain on the right. He also notes continued diarrhea. PHYSICAL EXAMINATION: Reveals an afebrile gentleman, who was 39 degrees as recently as yesterday afternoon. He is now 36.8, pulse 82, respiratory rate 32, blood pressure 137/64. He is saturating well on very high flow nasal oxygen. He is awake and alert this morning. Sinuses nontender. Oral cavity without pharyngitis. His neck is supple. His lungs with diffuse rales, more on the right than the left but really still very poor air flow bilaterally. Cardiac tones: Regular rate and rhythm. Abdomen: Soft and nontender. No skin rash. LABORATORIES: Include a white count 10,000 with left shift. Creatinine is 0.53 so it is actually improved. AST 187, ALT 73, both slightly worse. Albumin is 2. Procalcitonin is pending. It was 8.3 yesterday. Urine Legionella antigen is positive. HIV negative. Blood cultures negative. Stool PCR panel is pending. Respiratory PCR panel was negative. MRSA screen negative. Blood cultures negative. IMAGING: Yesterday's chest x-ray showed very severe bilateral pneumonia. Today's is yet to be done but it has been ordered. IMPRESSION: As we had surmised, this patient has Legionnaires disease. Twenty years of controversy have not resolved the issue about which is better, macrolides or quinolones. Also unresolved is whether rifampin helps in severe cases though there is a minimal body of evidence to suggest it does. Most of the major Legionnaires experts now agree that quinolones and macrolides are roughly equal in their efficacy and as this patient is tolerating azithromycin I would be inclined to continue. RECOMMENDATIONS: 1. Continue with azithro 500 IV a day until he is clearly improved, then we will switch to oral to complete a 10-14 day course. 2. Rifampin 300 b.i.d. will be added. 3. The ceftriaxone can be discontinued. I have written for it to stop this evening. Assuming there are no additional positive cultures that surprise us, we can then be done with the beta-lactam agents as of gerson. 4. This case discussed in person with Dr. Thorpe and the ICU team.
--- NOTE | 2016-11-04 09:08 | NUR ---
Infection Prevention [facility] notified of positive Legionella antigen.
--- NOTE | 2016-11-04 10:31 | NUR ---
NUTRITION ASSESSMENT: ASSESS:51 YO male transferred to CCU with rigors, worsening shortness of breath, requiring high-flow nasal oxygen. He also has a cough productive of copious thin sputum and perhaps some mild pleuritic chest pain on the right. He also notes continued diarrhea, which is in the rule out process for C. diff. Legionnaire's disease has been confirmed. Per discussion during CCU rounds, patient has a low threshold for intubation. His nutrition status is poor, as he has had minimal intake 8 days prior to admission. Patient is beginning to hallucinate, with CIWA scores increasing. Code status: full. PMHx:History of choking on food (has upper dentures), ETOH, smoking. DIET:General diet is ordered, but no PO intake is recorded. There is a note from Speech Therapy, noting that he has been transferred to CCU, with their evaluation pending. LABS: Reviewed. Cr 0.53, Glu 112, Ca 7.3, AST 187, ALT 73, Alb 2.0. MEDICATIONS: Reviewed. Florastor, vitamin B1, MVI. NUTRITION FOCUSED PHYSICAL ASSESSMENT: GI symptoms / stool: Diarrhea noted.Aries: 15. Skin Integrity: No issues noted. ANTHROPOMETRICS: Current Wt: 83.0 kgBMI: 25.0 kg/m2.Admit weight: 82.2 kg. IBW: 78.18 kg (105% IBW) ESTIMATED NEEDS (CCU): Calories: 2055 - 2466 kcal (25 - 30 kcal / kg BW) Protein: 66 - 123 g protein (0.8 - 1.5 g / kg BW) Fluid: 2466 - 2877 ml (Approx. 30 - 35 ml / kg BW) NUTRITION DIAGNOSIS: 1)Potential chewing / swallowing issues related to severe shortness of breath, as evidenced by pending swallow evaluation. 2)Inadequate oral intake related to inability to consume sufficient energy, as evidenced by minimal PO intake 8 days prior to admit. INTERVENTION: 1) Once appropriate diet texture determined, will add supplements to trays. 2) In the event pt. requires intubation over the weekend, enteral feeding recommendation follows: Jevity 1.5, goal rate 80 ml/hr. Enteral feeding at goal would provide 2640 kcal, 112 g protein, sufficient to meet 100% nutrient needs. MONITOR/EVALUATE: Diet advance / tolerance, PO intake, labs, GI/nutrition status. Follow up per high nutrition risk guidelines.
[2016-11-04 12:09] LABS: Cryptococcal Ag Negative (Negative)
[2016-11-04] MEDS: Albuterol 2.5 mg/3 mL Inhalation Solution NEB PRN (12:15)
--- NOTE | 2016-11-04 12:26 | NUR ---
pt. complaining of nose being dry, given water soluble lube and Sterile Q tips to coat inside of nares.
--- NOTE | 2016-11-04 12:31 | PCM.PNMED ---
Subjective Date of Service Nov 04, 2016 Subjective 51-year-old male who presented with 8 days of cough, high fevers, chills, rigors , general malaise and lethargy who is transferring to the CCU last evening. Urine antigens of Legionella and Streptococcus pneumoniae were taken last night with return of a negative Streptococcus and a positive Legionella. This morning patient seems to be doing a little bit better then was last night. Respiratory rate is 20s to 40s instead of 30s to 50s. Patient is saturating well. Patient denies increased difficulty breathing or worsening cough. He does state that he feels feverish. Overnight patient did not have a significant fever. Exam Vital Signs Vital Sign - Last Date Time Temp Pulse Resp B/P Pulse Ox O2 Delivery O2 Flow Rate FiO2 11/04/16 12:02 61 11/04/16 11:56 Supplement Oxygen 11/04/16 11:56 36.5 34 123/55 96 100 11/04/16 07:30 60 Intake and Output 11/03/16 11/03/16 11/04/16 Cumulative From/Thru 15:00 23:00 07:00 11/01/16 13:52 - 11/04/16 06:06 Intake Total 0 ml 2150 ml 2615 ml 86285 ml Output Total 350 ml 200 ml 800 ml 3975 ml Balance -350 ml 1950 ml 1815 ml 33416 ml Intake Oral 0 ml 50 ml 1370 ml 4488 ml IV Total 2100 ml 1245 ml 9495 ml Output Urine Total 350 ml 200 ml 800 ml 3975 ml # Voids 1 1 # Bowel Movements 1 3 Exam Gen.: Patient mild distress with supraclavicular retractions. HEENT: No JVD noted, supple Cardiac: Patient rated between 61 and 82 overnight. Regular rhythm without murmurs Respiratory: Respiratory rate 20s to 40s with supraclavicular retractions. Mild distress. Patient able to talk and move without desaturation. Patient currently on high flow. Left lung sounds better aerated than right. Abdominal: Currently no abdominal breathing. Soft, nontender, nondistended Extremities: Pulses intact peripherally, no edema Neurological: Cranial 2 through 12 intact grossly Psych: Patient mildly anxious but able to control his respirations Skin: No rashes IVs and Medications Medications Reviewed: Medications were reviewed in detail Lab and Diagnostics Result Diagram: 2/17/17 0340 2/17/17 0340 Assessment & Plan Problem list 1. Legionella pneumonia 2. Acute Transaminitis Neuro: Patient is anxious but doing pretty well. Patient could go through alcohol withdrawal today will continue to monitor this. If patient requires diazepam likely intubation will follow Cardiovascular: Patient maintained blood pressures well, no tachycardia was overnight, we will continue to monitor especially patient requires intubation. At that time central line will be placed likely right IJ with pressure support. This will be done if required postintubation Respiratory: Patient's chest x-ray seems to progress mildly from yesterday although this difficult to tell due to mild rotation the film. Lung sounds similar to yesterday. Legionella returned positive this morning and rifampin was added to azithromycin, ceftriaxone, and metronidazole. Patient could go through alcohol withdrawal, but even with this he may require intubation by the day. He is more stable and it was yesterday which is promising however he still has difficulty breathing as breathing between 20 and 40/m. The patient begins to tire or receives respiratory depressants he will require intubation and subsequent central line placement. GI: We will refer to primary team. 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 Infection control has contacted the health department. Currently patient being treated with azithromycin, ceftriaxone, metronidazole, and rifampin. The patient's diseases prescribing antibiotics and when Dr. Lopez returns today will have an additional discussion with him. Patient for calcitonin is trending down from 13.51 2.3. Chest x-ray looks mildly progressive although is difficult to tell. White count is still normal but rising to 10.0 today. Patient also has increase in LFTs likely secondary to Legionella. Fevers will be treated with Tylenol. Nutrition: Patient is able to eat and drink and maintains a small appetite. Currently fluids will be given as needed and patient can eat as tolerated. Disposition: Patient is mildly improved from yesterday although if alcohol withdrawal begins he will require intubation after receiving diazepam. However patient may tire out by the end of the day require intubation anyways. We will continue to follow closely. Time spent: 1.5 hours GI Prophylaxis: Proton Pump Inhibitor VTE Prophylaxis: SCDs VTE Mechanical Devices: Intermittant Pneumatic CD Resuscitation Status: CPR: Attempt Resuscitation Attending Statement The patient was seen and examined together with Dr. Jimenez on 11/04/2016 and I agree with the history, exam and plan as outlined in the note above. Julio Jimenez DO Nov 04, 2016 12:31 Gennaro Thorpe MD Nov 18, 2016 09:52
--- NOTE | 2016-11-04 12:50 | NUR ---
Diaphoresis/c-Diff negative Respiratory rate was 32- 52 this morning. Patient appeared to be fragile with any activity causing his oxygen saturation decrease below 90% to 85-89%. Oxygen flow per HF O2 NC at the time was 60L and 80%- consulted with attending tuft machine operator- HF O2 NC adjusted to 100% and 60L. Oxygen saturation improved and increased to 92-97%, patient remained tachypneic. Low grate fever this morning at 37.6C- patient was medicated with Tylenol 650mg PO X1. Patient had about 2h of diaphoresis following Tylenol administration after that time diaphoresis resolved spontaneously. Skin care and linen change were provided to the patient. Oral temperature at noon time was 36.5 C. C-Diff negative stool sample- MD was made aware- contact enteric isolation was discontinued, patient and family were educated on changes.
[2016-11-04] MEDS ORDERED: Ondansetron 2 mg/mL 2 mL Inj IVPUSH PRN (18:05)
[2016-11-04] MEDS ORDERED: KCl 40 mEq/500 mL D5W(K 3 - 3.7 & Creat < 2) IV ONE (19:40)
--- NOTE | 2016-11-04 20:13 | PCM.PNMED ---
Subjective Date of Service Nov 04, 2016 Subjective 51-year-old male with dry cough/headache/weakness/chills/fevers initially seen by urgent care 1 week ago, presented again today after he fell due to weakness yesterday, he was found to have right lower lobe pneumonia. Patient continues to be tachypnea this morning despite being on 7 L oxymask. He reports feeling better however with no chest pain, headache, abdominal pain. Later in the day patient developed rigors and had O2 saturation down into the 70s. He was transferred to the critical care unit and placed on high flow oxygen. Overnight events: Increased work of breathing. Today: Patient was sitting in bed tolerating High flow O2. He was short of breath with conversation. His O2 needs are improving today from yesterday. Denies nausea, vomiting, chest pain, abdominal pain, dysuria, constipation. Report fever, chills, cough, shortness of breath, weakness, diarrhea. Exam Vital Signs Vital Sign - Last Date Time Temp Pulse Resp B/P Pulse Ox O2 Delivery O2 Flow Rate FiO2 11/04/16 16:50 79 46 95 Nasal Cannula 70 60 11/04/16 15:49 37.2 139/73 Intake and Output 11/03/16 11/03/16 11/04/16 Cumulative From/Thru 15:00 23:00 07:00 11/01/16 13:52 - 11/04/16 06:06 Intake Total 0 ml 2150 ml 2615 ml 57901 ml Output Total 350 ml 200 ml 800 ml 3975 ml Balance -350 ml 1950 ml 1815 ml 77677 ml Intake Oral 0 ml 50 ml 1370 ml 4488 ml IV Total 2100 ml 1245 ml 9495 ml Output Urine Total 350 ml 200 ml 800 ml 3975 ml # Voids 1 1 # Bowel Movements 1 3 Exam General: Mild distress, well-developed, well-nourished, appropriately interactive HEENT: Normocephalic, atraumatic. External ears without defect. Anicteric sclerae, moist conjunctivae, and no lid lag. Oropharynx free of erythema and cobble stoning with moist mucosa. Neck: Supple with full range of motion. No jugular venous distension. No lymphadenopathy or thyromegaly. Cardiovascular: Regular rate and rhythm with no murmurs, rubs, or gallops appreciated Pulmonary: Decreased breath sounds in right base with diffuse crackles, wheezes , and rhonchi. Increased respiratory effort with use of accessory muscles. Abdomen: Bowel tones present. Soft, nontender, nondistended. No hepatosplenomegaly or masses appreciated. Extremities: No clubbing, cyanosis, edema, or lymphadenopathy appreciated. Skin: Normal temperature, turgor, and texture; no rash, ulcers, or subcutaneous nodules appreciated. Neurological: Cranial nerves grossly intact. Normal muscle strength, tone, and bulk. No known gait impairment. Psychiatric: Normal mood and affect. Alert and oriented to person, place, and time. IVs and Medications Medications Reviewed: Medications were reviewed in detail Lab and Diagnostics Result Diagram: 11/04/16 0340 11/04/16 1708 X-Rays, CTs and MRIs X-RAY CHEST ONE VIEW, PORTABLE IMPRESSION: 1. Diffuse pulmonary edema and/or pneumonia similar to prior examination and persistent right pleural effusion is present. Dictated by: Blake Stubbs RRA Interpreted: Leyla Harris MD on 11/04/2016 at 8:25 Additional Diagnostics ABG DateTimeAnalyzed 14:20:00 -_ pH ____7.442 - 7.350 7.450 pCO2 ___34.1__ -mmHg 35.0 45.0 pO2 ___51.6__ -mmHg 69.0 116 HCO3- ___22.9__ -mmol/L 22.0 26.0 Assessment & Plan 51-year-old male with dry cough, headache, weakness, fever, chills for the last week with increasing weakness and ground-level fall the day prior to admission was found to have right lower lobe pneumonia. 1. Acute hypoxic respiratory failure, present on admission. Active. - 2nd to #2 below. - Continue High flow O2 and supportive treatments below. - Pulmonology following, time and recommendations appreciated. - CXR as above. ABG as above. 2. Legionella pneumonia, present on admission, Active. - PPI for now - DuoNeb's when necessary O2 - Sputum culture pending sample acquisition - Urine strep Ag negative, Viral PCR negative, Influenza screen negative, MRSA screen negative, HIV negative. - IV fluid normal saline at 80 mL/hour - DuoNeb every 4 hours, guaifenesin every 12 hours - Legionella urine Ag positive. - Dr. Lopez with infectious disease following, time and recommendations appreciated. - Continue Azithromycin. Start Rifampin. Discontinue Metronidazole, Rocephin, 3. Possible Alcohol use disorder with withdrawal. present on admission. Treated. - Patient reportedly drinks at least 2 alcoholic beverages per night his last drink was 6 days ago. - CIWA protocol. - Thiamine 4. Mild hyponatremia/elevated creatinine likely prerenal VIDAL, present on admission, resolved - Likely 2nd to legionella pneumonia. - IV fluid 5. Hypokalemia, present on admission, active - Replace with IV potassium 6. Mild thrombocytopenia - Likely 2nd to legionella pneumonia. - hold pharmaceutic DVT prophylaxis Chronic issues known prior to admission, present on admission Smoker -When necessary nicotine patch Diet regular DVT prophylaxis SCDs Code full High risk meds include IV diazepam however patient has not received this for CIWA protocol. Disposition inpatient likely here for > 2 midnights. Will discharge home when medically stable. Pain Evaluation: Adequate Pain Control GI Prophylaxis: Proton Pump Inhibitor VTE Prophylaxis: SCDs VTE Mechanical Devices: Intermittant Pneumatic CD Resuscitation Status: CPR: Attempt Resuscitation Time spent 40 minutes Attending Statement Patient seen and examined with house staff. Agree with all attached documentation. MISA CLAY DO Nov 04, 2016 19:58 Tello Prabhakar MD Nov 05, 2016 07:48
[2016-11-05] VITALS (8 sets, daily range): BP systolic 116–149; BP diastolic 58–92; PULSE 53–86; RESP 20–44; O2SAT 93–99
[2016-11-05] MEDS: 0.9% Sodium Chloride 1,000 ML IV SCH ×2 (02:30→15:55)
[2016-11-05 03:06] LABS: BASOPHILS % (AUTO) 0.3 % (0-3); MONOCYTES % (AUTO) 4.7 % (4-12); Mean Corpuscular Hemoglobin 31.2 pg (27.0-35.0); Mean Corpuscular Volume 88.6 fL (81-100); Platelet Count 236 bil/L (150-400)
--- NOTE | 2016-11-05 05:48 | NUR ---
Respiratory, confusion Vs as noted. Continues on hiflow nasal canula 60% at 60l this am. Sats mid 90s without desaturations. Respiratory rate 30s to 40s. Progressively more confused through the night. Hallucinating and requiring frequent reorientation. Required frequent redirection to remain in bed and leave lines in place. CIWA 13. Avoiding sedating medications to avoid intubation. at bedside and is attentive.
--- NOTE | 2016-11-05 05:49 | ABG ---
DateTimeAnalyzed 05:42:00 -_ pH ____7.482 - 7.350 7.450 pCO2 ___34.9__ -mmHg 35.0 45.0 pO2 ___85.2__ -mmHg 69.0 116 HCO3- ___25.8__ -mmol/L 22.0 26.0 ABE ____3.0__ -mmol/L -2.0 2.0 tHb ___12.5__ -g/dL O2Hb ___95.1__ -% COHb ____0.8__ -% MetHb ____1.1__ -% sO2 ___96.9__ -% 25.0 FIO2 ___60.0__ -% Drawn By cf - Date/Time Notified____ 05:48:00 -_ Oxygen Device 1 __CANNULA - Notified By cf - Notified Whom ___Dr. Mccart - B 744 -mmHg tO2 ___16.7__ -Vol% Tello test _Positive -
[2016-11-05] MEDS: guaiFENesin 600 mg ER12 Tablet PO SCH ×2 (08:05→20:29)
[2016-11-05] MEDS: Multivit-Miner-Folic Acid-Iron Tablet PO SCH (08:05)
[2016-11-05] MEDS: Azithromycin Inj 500 MG in Dextrose 5% w/Vial Mate 250 ML IV SCH (08:05)
[2016-11-05] MEDS: Pantoprazole 20 mg ER24 Tablet PO SCH ×2 (08:05→20:29)
--- NOTE | 2016-11-05 08:26 | DRSVH ---
PROCEDURE: X-RAY CHEST ONE VIEW, PORTABLE ([id number]) INDICATIONS: pneumonia TECHNIQUE: One view of the chest was acquired. COMPARISON: [facility], CR, XR CHEST 1VW (PORTABLE), 11/04/2016, 5:08. FINDINGS: Surgical changes and devices: None. Lungs and pleura: Persistent appearance of bilateral airspace opacities most prominent in the right m iddle and lower lobes. Overall appearance has not significantly changed. Mediastinum: Mediastinal contours appear normal. Heart size is normal. Bones and chest wall: No suspicious bony lesions. Overlying soft tissues appear unremarkable. IMPRESSION: Persistent bilateral opacities most suggestive of pneumonia and/or edema. No appreciable interval change. Dictated by: Leyla Harris M.D. on 11/05/2016 at 8:24 Approved by: Leyla Harris M.D. on 11/05/2016 at 8:24
--- NOTE | 2016-11-05 10:22 | PROG NOTE ---
[address] [address] PROGRESS NOTE PATIENT: SERENA HAGEN : 1965 MR#: [id number] ADMIT: 11/01/2016 JOB ID: [id number] DATE: 11/05/2016 REASON FOR FOLLOWUP: Legionnaires disease with extensive right greater than left pulmonary infiltrates and encephalopathy. INTERVAL HISTORY: Overnight, the patient has become confused. His notes that he started hallucinating during the middle of the night. It does continue up until this morning when he saw video games appearing in the window of his hospital room. When asked where he is and what day it is this morning, the patient basically refuses to answer. He does answer other questions and says that his breathing is getting better and that he was told by another physician that his chest x-ray is improved, which I double-checked and turns out to be an accurate reflection of a conversation he had earlier. Aside for his confusion, he continues to be short of breath and have subjective fevers, chills, and severe sweating. His cough remains moderate, and his diarrhea is resolving. No skin rash reported. PHYSICAL EXAMINATION: The patient is 37 degrees right now. He was as high as 38.5 last night, and that is his last recorded fever. Pulse in the 70s, respiratory rate in the 30s. He is receiving high-flow nasal oxygen and saturating fairly well with that. Blood pressure 149/76, and he is not requiring vasopressor agents. As mentioned, he is oriented x1 this morning and hallucinating which is quite a change from yesterday. His eyes without conjunctivitis. Oral cavity negative. High-flow nasal oxygen in place. Neck is supple. Lungs with extensive rales on the right and a lesser amount on the left at the base. Cardiac tones without murmur. Abdomen soft, nontender. No organomegaly. He has a normal-appearing penis and scrotum with Quintana in place. No rash is noted. No swelling of the extremities. LABORATORIES: Include white count 9900, hematocrit 36, platelets 236, creatinine 0.46. Bilirubin 1.5, AST 152, ALT 75, albumin 1.9. His procalcitonin is coming down. It was 20 on admission. Yesterday, it was 4.5, so seeing good improvement. Urine Legionella antigen was positive, of course. A stool PCR is negative. Respiratory viral PCR is negative. Pneumococcal antigen negative. MRSA screen negative. I carefully compared the imaging from today to prior x-rays. He has persistent bilateral opacities, much worse on the right. The radiologists say there is no appreciable interval change, though Dr. Thorpe of ICU and I have discussed the films and felt that there may be some small degree of improvement, but certainly no worse today. IMPRESSION: This patient remains critically ill with Legionnaires disease, respiratory failure, and now encephalopathy. Aside from his diminished mental status and hallucinations overnight, the patient appears almost identical to me as compared to yesterday with respect to his respiratory status, his physical exam, his chest x-ray, and his laboratories. We do see some improvement in his procalcitonin, though, and his fever curve may be moderating. As we continue to push the azithromycin and rifampin, I hope that the patient will turn the corner here in the next 48-72 hours. RECOMMENDATIONS: 1. Will continue with azithromycin 500 day IV until he is somewhat improved, and then will switch to oral. 2. Will continue with rifampin 300 mg p.o. b.i.d. 3. This case discussed extensively with the ICU team.
[2016-11-05] MEDS: Dexmedetomidine 400 mCg/100 mL 400 MCG in IV Premix 1 EACH IV SCH ×2 (10:28→15:55)
--- NOTE | 2016-11-05 10:50 | PROG NOTE ---
[address] [address] PROGRESS NOTE PATIENT: SERENA HAGEN : 1965 MR#: [id number] ADMIT: 11/01/2016 JOB ID: [id number] DATE: 11/05/2016 PULMONARY CRITICAL CARE FOLLOW UP NOTE: PROBLEM: Legionella pneumonia. SUBJECTIVE: The patient confused and response is unreliable. Denies shortness of breath or pain. Eating some scrambled eggs somewhat inexpertly. Responding to questions seemingly appropriately. OBJECTIVE: Temperature 37 with T-max being 38.5. Pulse 67-86, respiratory rate mid 30s. Blood pressure 149/76. O2 sat on high-flow oxygen with an FiO2 of 60%. Flow of 70 L shows an O2 sat of 96%-98%. General appearance: Sitting up in his bed eating scrambled eggs. Tremor present. Getting most of the eggs to his mouth but occasionally dropping them into his chest. Chest: Fair breath sounds. Coarse leathery crackles both lung silva, more so on the left. No use of accessory muscles. Heart: Regular rhythm. Heart tones normal. Abdomen is soft. Some bowel tones present. Extremities: Warm. No edema. LABORATORY: Shows a white count of 9900 with 81 polymorphonuclears, no bands, 11 lymphocytes, 4 monocytes. Hemoglobin relatively stable at 12.6. Has been slowly decreasing over the past four days. Platelet count rising at 236,000. Sodium 136, potassium 3.7, chloride 100, CO2 is 26. BUN 13 with a creatinine 0.4. Calcium 7.6 with albumin 1.9. Total bilirubin rising at 1.5 being 0.6 mg/dL yesterday. Transaminases stable. Alkaline phosphatase normal. Urine for Legionella antigen positive. Arterial blood gases on a FiO2 of 60% by high-flow system. Flow not documented shows a pO2 of 85, pCO2 of 34, pH of 7.48. ASSESSMENT: Legionnaires pneumonia. Oxygenation doing better. I think overall his pneumonia may be slightly better. Major problem at this point is confusion. Do not really think it is due to alcohol withdrawal but rather from the Legionnaires disease. He is getting Valium which works for very brief periods of time. Will try using dexmedetomidine and see how we do. We can use that as a constant infusion which may give us more of a leveling affect assuming it works. PLAN: 1. Start dexmedetomidine infusion. 2. Continue current medications. Case discussed with primary service. Also discussed with the patient's .
--- NOTE | 2016-11-05 13:16 | NUR ---
Anxiety Increased hallucinations and agitation through the [facility] per night shift supervisor RN reporting. Patient continued to be agitated and was hallucinating. Consulted with MD Valium 5 mg IV was given at 0758 and again at 0903 additional 5mg- patient was able to relax for a short time but continued to hallucinate and after about 10-15 min patient became anxious, fidgeting and impulsive. Patient wanted to get up and go home several times. Patients remained at the bedside staff and patients wives were able to calm him down most of the time. Patient was also removing his HF O2 NC with his oxygen sat deceasing to low 80s- consulted with MD patient was started on low dose Precedex drip after about 40in patient appeared to be calmer with occasional outburst of anxiety/impulsiveness. When agitated patient continued to remove oxygen and was attempting to get out of bed- consulted with MD will consider behavioral restraints if agitation continues- continue assessment/frequent rounds.
--- NOTE | 2016-11-05 17:10 | PCM.PNMED ---
Subjective Date of Service Nov 05, 2016 Subjective Mr. Chris Perez is a pleasant 51-year-old gentleman with dry cough/headache/ weakness/chills/fevers initially seen by urgent care 1 week ago, presented again today after he fell due to weakness yesterday, he was found to have right lower lobe pneumonia. Patient continues to be tachypnea this morning despite being on 7 L oxymask. He reports feeling better however with no chest pain, headache, abdominal pain. Later in the day patient developed rigors and had O2 saturation down into the 70s. He was transferred to the critical care unit and placed on high flow oxygen. And is currently on high flow O2 at 60 FiO2, with sats of 98%. Overnight events: Patient was hallucinating more agitated overnight. He did not receive Valium. Today: Patient was sitting in bed tolerating High flow O2. He was alert but was not oriented to time place and person, and family reported patient was hallucinating. He still has bouts of insomnia and has not slept since admission , according to family. His O2 needs are improving today from yesterday and is tolerating 60 FiO2 down from 70. Denies nausea, vomiting, chest pain, abdominal pain, dysuria, constipation. Report fever, chills, cough, shortness of breath, weakness, diarrhea. Exam Vital Signs Vital Sign - Last Date Time Temp Pulse Resp B/P Pulse Ox O2 Delivery O2 Flow Rate FiO2 11/05/16 10:21 Supplement Oxygen 11/05/16 08:02 77 11/05/16 08:02 37.0 33 149/76 98 11/05/16 07:56 60 60 Intake and Output 11/04/16 11/04/16 11/05/16 Cumulative From/Thru 15:00 23:00 07:00 11/01/16 13:52 - 11/05/16 05:47 Intake Total 2347 ml 1780 ml 18113 ml Output Total 775 ml 900 ml 5650 ml Balance 1572 ml 880 ml 57101 ml Intake Oral 1150 ml 480 ml 6118 ml IV Total 1197 ml 1300 ml 05590 ml Output Urine Total 775 ml 900 ml 5650 ml # Voids 1 # Bowel Movements 3 Exam General: Mild distress, well-developed, well-nourished, appropriately interactive HEENT: Normocephalic, atraumatic. External ears without defect. Anicteric sclerae, moist conjunctivae, and no lid lag. Oropharynx free of erythema and cobble stoning with moist mucosa. Neck: Supple with full range of motion. No jugular venous distension. No lymphadenopathy or thyromegaly. Cardiovascular: Regular rate and rhythm with no murmurs, rubs, or gallops appreciated Pulmonary: Decreased breath sounds in right base with diffuse crackles, wheezes , and rhonchi. Increased respiratory effort with use of accessory muscles. Abdomen: Bowel tones present. Soft, nontender, nondistended. No hepatosplenomegaly or masses appreciated. Extremities: No clubbing, cyanosis, edema, or lymphadenopathy appreciated. Skin: Normal temperature, turgor, and texture; no rash, ulcers, or subcutaneous nodules appreciated. Neurological: Cranial nerves grossly intact. Normal muscle strength, tone, and bulk. No known gait impairment. Psychiatric: Normal mood and affect but clearly delightfully confused and not oriented to time place or people in the room, calling a fried of his Mrs. Magaña, and is currently 1965 ( patient's birthday), and [place] is still the president. IVs and Medications Medications Reviewed: Medications were reviewed in detail Lab and Diagnostics Result Diagram: 11/05/16 0300 11/05/16 0300 X-Rays, CTs and MRIs X-RAY CHEST ONE VIEW, PORTABLE IMPRESSION: Persistent bilateral opacities most suggestive of pneumonia and/or edema. No appreciable interval change. Dictated by: Leyla Harris M.D. on 11/05/2016 at 8:24 X-RAY CHEST ONE VIEW, PORTABLE IMPRESSION: 1. Diffuse pulmonary edema and/or pneumonia similar to prior examination and persistent right pleural effusion is present. Dictated by: Blake Stubbs [facility] Interpreted: Leyla Harris MD on 11/04/2016 at 8:25 Additional Diagnostics ABG DateTimeAnalyzed 05:42:00 -_ pH ____7.482 - 7.350 7.450 pCO2 ___34.9__ -mmHg 35.0 45.0 pO2 ___85.2__ -mmHg 69.0 116 HCO3- ___25.8__ -mmol/L 22.0 26.0 ABG DateTimeAnalyzed 14:20:00 -_ pH ____7.442 - 7.350 7.450 pCO2 ___34.1__ -mmHg 35.0 45.0 pO2 ___51.6__ -mmHg 69.0 116 HCO3- ___22.9__ -mmol/L 22.0 26.0 Assessment & Plan 51-year-old male with dry cough, headache, weakness, fever, chills for the last week with increasing weakness and ground-level fall the day prior to admission was found to have right lower lobe pneumonia. 1. Acute hypoxic respiratory failure, present on admission. Active. - 2nd to #2 below. - Continue High flow O2 and supportive treatments below. Current settings of 16 FiO2 down from 70. - Pulmonology following, time and recommendations appreciated. - CXR as above. ABG as above. 2. Legionella pneumonia, present on admission, Active. - Continue proton pump limited. - DuoNeb's when necessary. - Sputum culture pending sample acquisition - Urine strep Ag negative, Viral PCR negative, Influenza screen negative, MRSA screen negative, HIV negative. - IV fluid normal saline at 80 mL/hour - DuoNeb every 4 hours, guaifenesin every 12 hours - Legionella urine Ag positive. - Dr. Lopez with infectious disease following, time and recommendations appreciated. - Continue Azithromycin. Rifampin. - Patient was switched to Precedex ggt and CIWA protocol was discontinued. 3. Possible Alcohol use disorder with withdrawal. present on admission. Treated. - Patient reportedly drinks at least 2 alcoholic beverages per night his last drink was 6 days ago. - CIWA protocol discontinued. 1-2 mg Calan SR when necessary Valium available by IV. - Thiamine. 4. Mild hyponatremia/elevated creatinine likely prerenal VIDAL, present on admission, resolved - Likely 2nd to legionella pneumonia. 5. Hypokalemia, present on admission, active - Replace with IV potassium 6. Mild thrombocytopenia - Likely 2nd to legionella pneumonia. - hold pharmaceutic DVT prophylaxis Chronic issues known prior to admission, present on admission Smoker -When necessary nicotine patch Diet regular DVT prophylaxis SCDs Code full High risk meds include IV diazepam however patient has not received this for CIWA protocol. Disposition inpatient likely here for > 2 midnights. Will discharge home when medically stable. Pain Evaluation: Adequate Pain Control GI Prophylaxis: Proton Pump Inhibitor VTE Prophylaxis: SCDs VTE Mechanical Devices: Intermittant Pneumatic CD Resuscitation Status: CPR: Attempt Resuscitation Time spent 30 min Attending Statement Patient seen and examined with house staff. Agree with all attached documentation. MISA CLAY DO Nov 05, 2016 11:38 Tello Prabhakar MD Nov 06, 2016 07:34
--- NOTE | 2016-11-05 18:52 | NUR ---
Decreased agitation Precedex drip gradually increased to 0.5-0.6 during earlier part of the shift. Patient was able to relax and fell asleep at the time. Patient continued to be able to wake up to verbal commands and stimulation but was falling asleep easily. Respiratory rate decreased to mid 20s and heart rate dropped from 70s to 45-55 ranges with stable BP. Patient appeared to be breathing easier and oxygen saturation remained 95-99% on HFO2NC at 06L+ 60%. Attending MD was made aware about the changes -follow up labs in AM, continue assessment.
[2016-11-06] VITALS (15 sets, daily range): BP systolic 118–128; BP diastolic 57–66; PULSE 52–77; RESP 22–35; O2SAT 92–98
[2016-11-06 03:24] LABS: BASOPHILS % (AUTO) 0.5 % (0-3); MONOCYTES % (AUTO) 6.5 % (4-12); Mean Corpuscular Hemoglobin 31.3 pg (27.0-35.0); Mean Corpuscular Volume 90.9 fL (81-100); NEUTROPHILS % (AUTO) 77.3 % (40-74); Platelet Count 256 bil/L (150-400)
[2016-11-06 03:53] LABS: Phosphorus 3.2 mg/dL (2.5-4.9)
[2016-11-06] MEDS: 0.9% Sodium Chloride 1,000 ML IV SCH (04:00)
--- NOTE | 2016-11-06 04:57 | NUR ---
Respiratory, mentation Vs as noted. Sats high 90s on now 55% fio2 and 50L hiflow canula without desaturation. Precedex gtt weaned down to 0.4mcg/kg/h. Pt much more cooperative and less confused tonight. Arouses easily and is fairly appropriate but still confused. IVF NS as 80ml/h. Quintana cath in place with shara uop.
[2016-11-06] MEDS: Dexmedetomidine 400 mCg/100 mL 400 MCG in IV Premix 1 EACH IV SCH ×2 (06:07→19:49)
[2016-11-06] MEDS: Pantoprazole 20 mg ER24 Tablet PO SCH ×2 (07:31→19:43)
[2016-11-06] MEDS: Multivit-Miner-Folic Acid-Iron Tablet PO SCH (07:31)
[2016-11-06] MEDS: Azithromycin Inj 500 MG in Dextrose 5% w/Vial Mate 250 ML IV SCH (07:31)
[2016-11-06] MEDS: guaiFENesin 600 mg ER12 Tablet PO SCH ×2 (07:31→19:43)
--- NOTE | 2016-11-06 13:34 | PCM.PNMED ---
Subjective Date of Service Nov 06, 2016 Subjective Overnight: Weaning off Precedex, improving confusion. Today: He appears to be less confused and more comfortable. He reports less shortness of breath, but continues to have wheezing. Denies coughing, fevers, chills, N/V/D. Currently on high-flow nasal cannula at FiO2 0.5 Exam Vital Signs Vital Sign - Last Date Time Temp Pulse Resp B/P Pulse Ox O2 Delivery O2 Flow Rate FiO2 11/06/16 12:35 Supplement Oxygen 11/06/16 12:34 36.7 55 28 118/59 94 40 11/06/16 12:32 30 Intake and Output 11/05/16 11/05/16 11/06/16 Cumulative From/Thru 15:00 23:00 07:00 11/01/16 13:52 - 11/06/16 06:22 Intake Total 1919 ml 1165 ml 53778 ml Output Total 1150 ml 800 ml 7600 ml Balance 769 ml 365 ml 50664 ml Intake Oral 800 ml 6918 ml IV Total 1119 ml 1165 ml 97360 ml Output Urine Total 1150 ml 800 ml 7600 ml # Voids 1 # Bowel Movements 3 Exam General: Alert, Oriented, Cooperative, No Acute Distress Head: Normocephalic, atraumatic. External ears normal. Eyes: PERRLA, EOMI. Anicteric sclerae. Mouth: Mouth Normal, Mucous Membranes Moist/Carmi Neck: Neck supple with full range of motion. Chest & Lungs: Wheezes present bilaterally Cardiovascular: Regular Rate/Rhythm, Normal S1, Normal S2, No Murmurs/Rubs/ Gallops Abdomen: Non-tender, Non-distended, No masses, Normoactive bowel tones, Soft Musculoskeletal: Normal Range of Motion Extremities: No cyanosis/clubbing/edema bilaterally Neurological: Grossly Neurologically Intact, Normal Speech Lab and Diagnostics Result Diagram: 11/06/16 0250 11/06/16 0250 X-Rays, CTs and MRIs X-RAY CHEST ONE VIEW, PORTABLE IMPRESSION: Persistent bilateral opacities most suggestive of pneumonia and/or edema. No appreciable interval change. Dictated by: Leyla Harris M.D. on 11/05/2016 at 8:24 X-RAY CHEST ONE VIEW, PORTABLE IMPRESSION: 1. Diffuse pulmonary edema and/or pneumonia similar to prior examination and persistent right pleural effusion is present. Dictated by: Blake MOON Interpreted: Leyla Harris MD on 11/04/2016 at 8:25 Additional Diagnostics ABG DateTimeAnalyzed 05:42:00 -_ pH ____7.482 - 7.350 7.450 pCO2 ___34.9__ -mmHg 35.0 45.0 pO2 ___85.2__ -mmHg 69.0 116 HCO3- ___25.8__ -mmol/L 22.0 26.0 ABG DateTimeAnalyzed 14:20:00 -_ pH ____7.442 - 7.350 7.450 pCO2 ___34.1__ -mmHg 35.0 45.0 pO2 ___51.6__ -mmHg 69.0 116 HCO3- ___22.9__ -mmol/L 22.0 26.0 Assessment & Plan 51-year-old male with dry cough, headache, weakness, fever, chills for the last week with increasing weakness and ground-level fall the day prior to admission was found to have right lower lobe pneumonia. 1. Acute hypoxic respiratory failure, present on admission. Active. - 2nd to Legionella pneumonia. - Continue High flow O2 and supportive treatments below. Current settings of 16 FiO2 down from 70. - Pulmonology following, time and recommendations appreciated. - CXR as above. ABG as above. 2. Legionella pneumonia, present on admission, Active. - Urine strep Ag negative, Viral PCR negative, Influenza screen negative, MRSA screen negative, HIV negative. Legionella urine Ag positive. - Continue azithromycin 500 mg IV daily. - Discontinued rifampin - DuoNebs when necessary. - DuoNeb every 4 hours, guaifenesin every 12 hours - Dr. Lopez with infectious disease following, time and recommendations appreciated. - Continue Azithromycin. Rifampin. 3. Elevated transaminases, acute. Not present on admission. - Possibly secondary to Legionella pneumonia vs rifampin use. - Discontinue rifampin - Monitor CMP 4. Possible Alcohol use disorder with withdrawal. present on admission. Treated. - Patient reportedly drinks at least 2 alcoholic beverages per night his last drink was 6 days ago.Patient was switched to Precedex ggt and CIWA protocol was discontinued. - Wean Precedex as tolerated - Thiamine. 5. Mild hyponatremia/elevated creatinine likely prerenal VIDAL, present on admission, resolved - Likely 2nd to legionella pneumonia. 6. Hypokalemia, present on admission, active - Replace with IV potassium 7. Mild thrombocytopenia - Likely 2nd to legionella pneumonia. - hold pharmaceutic DVT prophylaxis Chronic issues known prior to admission, present on admission Smoker -When necessary nicotine patch High risk meds include IV diazepam however patient has not received this for CIWA protocol. Disposition inpatient likely here for > 2 midnights. Will discharge home when medically stable. GI Prophylaxis: Proton Pump Inhibitor VTE Prophylaxis: SCDs Resuscitation Status: CPR: Attempt Resuscitation Time spent 30 min Attending Statement Patient seen and examined with housestaff. Agree with all attached documentation. Mikey Lewis Nov 06, 2016 13:34 Tello Prabhakar MD Nov 07, 2016 10:11
--- NOTE | 2016-11-06 14:42 | NUR ---
RESPIRATORY Patient's oxygen demands have decreased throughout the morning, so high-flow O2 decreased to 30% FiO2 and 30 LPM. He has been tolerating these settings well, maintaining SpO2 between 91% and 95%. Patient denies SOB at rest, but still reports w/ any mobility or activity. Will attempt to wean to OxyMask and monitor vitals.
--- NOTE | 2016-11-06 15:14 | DRSVH ---
PROCEDURE: X-RAY CHEST ONE VIEW, PORTABLE ([id number]) INDICATIONS: Legionella pneumonia, respiratory failure TECHNIQUE: One view of the chest was acquired. COMPARISON: [facility], CR, XR CHEST 1VW (PORTABLE), 11/02/2016, 20:36. [facility], CR, XR CHEST 2VW, 11/01/2016, 10:34. [facility], CR, XR CHEST 1VW (PORTABLE), , 4:45. FINDINGS: Surgical changes and devices: None. Lungs and pleura: Bilateral diffuse airspace infiltrates consistent with pneumonia. There is a small right effusion. Overall, there is minimal interval change. No pneumothorax. Mediastinum: Mediastinal contours appear normal. Heart size is normal. Bones and chest wall: No suspicious bony lesions. Overlying soft tissues appear unremarkable. IMPRESSION: Persistent bilateral pneumonia. Dictated by: Dread Royal M.D. on 11/06/2016 at 9:33 Approved by: Dread Royal M.D. on 11/06/2016 at 9:35
--- NOTE | 2016-11-06 15:16 | ABG ---
DateTimeAnalyzed 05:47:00 -_ pH ____7.421 - 7.350 7.450 pCO2 ___39.2__ -mmHg 35.0 45.0 pO2 117 -mmHg 69.0 116 HCO3- ___25.0__ -mmol/L 22.0 26.0 ABE ____1.1__ -mmol/L -2.0 2.0 tHb ___12.1__ -g/dL O2Hb ___96.0__ -% COHb ____0.8__ -% MetHb ____1.2__ -% sO2 ___98.0__ -% 25.0 FIO2 ___55.0__ -% Drawn By Mt - Date/Time Notified____ 05:55:00 -_ Notified By Mt - Notified Whom RN - B 742 -mmHg tO2 ___16.4__ -Vol% Tello test _Positive -
[2016-11-06] MEDS: Albuterol 2.5 mg/3 mL Inhalation Solution NEB PRN ×2 (16:24→20:28)
--- NOTE | 2016-11-06 16:32 | NUR ---
1444 Elsy Palacios RN assumes care
--- NOTE | 2016-11-06 16:46 | PROG NOTE ---
[address] [address] PROGRESS NOTE PATIENT: SERENA HAGEN : 1965 MR#: [id number] ADMIT: 11/01/2016 JOB ID: [id number] DATE: 11/06/2016 PULMONARY CRITICAL CARE FOLLOWUP NOTE: PROBLEM: Legionnaires' disease. SUBJECTIVE: Feeling quite a bit better. Much more lucid. Carrying on appropriate conversation. He is hungry. Has not had a bowel movement that he is aware of. No shortness of breath. Having somewhat more of a cough and maybe a bit more sputum. OBJECTIVE: Temperature 36.8, with T-max being 37.3. Pulse mid 50s. Respiratory rate 26-35. Blood pressure 120/58. O2 sat on FiO2 of 45 with a flow rate of 60 is 98% to 100%. I and O shows 3.6 L in, 2 L out. Awake, alert, rather weak but mentally seems quite lucid. states he is much more appropriate. Nods off easily, however. Chest: Somewhat diminished breath sounds. Maybe a few crackles but overall clear. Crackles seem more in the lower lung silva, maybe more so on the right but a few on the left as well. No use of accessory muscles. Heart: Regular rhythm. Heart tones normal. Abdomen soft. Nondistended. Nontender. Liver and spleen not palpable. No masses palpable. Bowel tones present. Extremities: No pretibial edema. LABORATORY DATA: Shows a white count of 7900 with 77 polymorphonuclears, 12 lymphocytes, 6 monocytes. Hemoglobin 12 and relatively stable. Platelet count rising at 256,000. Sodium 139, potassium 3.9, chloride 102, CO2 is 23. BUN 15 and stable. Creatinine 0.4 and stable. Calcium 7.4 with an albumin of 2. Phosphorus normal at 3.2. Magnesium normal at 2. Total bilirubin 1.1, down from 1.5. AST 202, up from 152 yesterday. ALT 108, up from 75 yesterday. Alkaline phos stable at 63. ASSESSMENT: Legionnaires' disease. Doing quite a bit better. Oxygen requirement is decreasing and we may actually be able to get him off high flow and on a mask later. Will talk to Respiratory Therapy about this. Mental status is much improved. Seems more awake, alert, but remains rather weak. He is requesting a hamburger for lunch and nurses think he would do well. Apparently ate a good-size breakfast. Therefore, I think we can get rid of the intravenous fluids. Not really sure of the benefit of rifampin with the concern of mild rise in transaminases. May be over-reacting but I think we should discontinue the rifampin and speak with our infectious disease colleagues tomorrow about whether we should continue the rifampin or not. That would also give us the benefit of another 24 hours to track the transaminases and see if the rise is real. PLAN: 1. Discontinue IV fluids. 2. Decrease flow on high-flow system to maybe 30 or 40 L a minute and see if possibly we can get him on a Oxy-mask today or maybe tomorrow. 3. CMP in the morning. 4. Hold the rifampin and discuss with ID tomorrow. 5. Advance diet. 6. Discontinue Quintana. 7. Discuss with hospitalist team.
[2016-11-06] MEDS: HYDROcodone-APAP 5-325 mg Tablet PO PRN (18:43)
[2016-11-07] VITALS (10 sets, daily range): BP systolic 104–143; BP diastolic 54–78; PULSE 63–88; RESP 20–34; O2SAT 93–98
[2016-11-07 03:34] LABS: BASOPHILS % (AUTO) 0.7 % (0-3); EOSINOPHILS % (AUTO) 3.3 % (0-5); MONOCYTES % (AUTO) 11.7 % (4-12); Mean Corpuscular Hemoglobin 30.7 pg (27.0-35.0); Mean Corpuscular Volume 91.1 fL (81-100); NEUTROPHILS % (AUTO) 65.7 % (40-74); Platelet Count 304 bil/L (150-400)
[2016-11-07] MEDS: Albuterol 2.5 mg/3 mL Inhalation Solution NEB PRN (05:34)
--- NOTE | 2016-11-07 05:47 | NUR ---
Sleep Pt reports that he has not gotten much sleep, and his goal for evening was to get as much sleep as possible. Care was clustered for limited interruptions. Pt reports getting a "decent night sleep". Care ongoing.
[2016-11-07] MEDS: Multivit-Miner-Folic Acid-Iron Tablet PO SCH (07:53)
[2016-11-07] MEDS: Pantoprazole 20 mg ER24 Tablet PO SCH ×2 (07:53→20:01)
[2016-11-07] MEDS: guaiFENesin 600 mg ER12 Tablet PO SCH ×2 (07:53→20:01)
[2016-11-07] MEDS: Azithromycin Inj 500 MG in Dextrose 5% w/Vial Mate 250 ML IV SCH (07:53)
--- NOTE | 2016-11-07 08:29 | DRSVH ---
PROCEDURE: X-RAY CHEST ONE VIEW, PORTABLE ([id number]) INDICATIONS: Pneumonia TECHNIQUE: One view of the chest was acquired. COMPARISON: [facility], CR, XR CHEST 1VW (PORTABLE), 11/06/2016, 4:20. FINDINGS: Surgical changes and devices: None. Lungs and pleura: Bilateral diffuse airspace infiltrates consistent with pneumonia and/or pulmonary edema. There is a small right effusion. Overall, there is minimal interval change. No pneumothorax. Mediastinum: Mediastinal contours appear normal. Heart size is normal. Bones and chest wall: No suspicious bony lesions. Overlying soft tissues appear unremarkable. IMPRESSION: Persistent bilateral pneumonia with and/or pulmonary edema. Dictated by: Blake Stubbs RRA Interpreted: Leyla Harris MD on 11/07/2016 at 8:28 Transcribed by: KIARA on 11/07/2016 at 8:28 Approved by: Leyla Harris M.D. on 11/07/2016 at 16:31
--- NOTE | 2016-11-07 10:42 | PROG NOTE ---
[address] [address] PROGRESS NOTE PATIENT: SERENA HAGEN : 1965 MR#: [id number] ADMIT: 11/01/2016 JOB ID: [id number] DATE: 11/07/2016 REASON FOR FOLLOW UP: Legionnaires disease with extensive right-sided pneumonia. INTERVAL HISTORY: Over the past 48 hours, the patient has continued to slowly improve. Today, he says he has no fevers, chills, or sweats. Both the patient and his report his mental status has returned to normal with no more hallucinations or delusions. His appetite is reasonably good. He continues to have an intermittently severe cough which is productive of some thin sputum. He notes his shortness of breath is improving, though he still requires nasal oxygen. His diarrhea and other GI symptoms have completely resolved. PHYSICAL EXAMINATION: Includes temperature 37.1. Note that he has now been afebrile three days after really continual high spiking fevers before that. Pulse 64, respiratory rate 26, blood pressure 133/68. Examination of the mental status reveals he is clear today. Oral cavity: No thrush or pharyngitis. Neck: Supple. Lungs with considerable right-sided rales and rhonchi, but more air movement than when I listened to him on Monday the . Abdomen: Soft and nontender. No skin rash noted. LABORATORIES: Include a white count 7000, with normal diff. Procalcitonin is down to 1.31. Urinalysis negative. Crypto antigen negative. Urine Legionella, of course, was positive. Stool PCR is negative. All other studies including blood cultures, negative. Today's chest x-ray, I carefully reviewed and compared to prior and shows some resolving but still extensive right-sided infiltrate. IMPRESSION: This patient has a very classic case of Legionnaires disease presenting with an extensive infiltrate, shortness of breath, diarrhea and later in his course some hallucinations. At this point, everything seems to be improving steadily. I note that over the weekend, the Pulmonary retirement consultant stopped the rifampin because of elevated LFTs. I suspect that LFT elevation is due to Legionnaires and not rifampin, but whether rifampin helps with Legionnaires disease is a matter of some debate in the literature, and so I am not troubled by it being stopped in this patient who is steadily improving. RECOMMENDATIONS: 1. Will transition the azithromycin to oral. 2. I would continue 500 mg of oral azithromycin through November 11. 3. ID will continue to follow with you, but I think in 2-3 days, if the patient is able to reduce his oxygen requirement, he will probably be ready for discharge.
--- NOTE | 2016-11-07 11:01 | NUR ---
NUTRITION FOLLOW UP: ASSESS: 51 YO M admitted to CCU with Legionnaire's disease. His nutrition status is poor, as he has had minimal intake 8 days prior to admission. PMHx: History of choking on food (has upper dentures), ETOH, smoking. DIET: General. PO intake: bites-50%. LABS: Reviewed. Cr 0.42, Glu 108, Ca 7.2, AST 138, ALT 99 MEDICATIONS: Reviewed. Precedex, Florastor, multivitamin GI: 1 BM 11/03 SKIN: No issues noted. ANTHROPOMETRICS: Current Wt: 84.9 kg, BMI: 26.1 kg/m2. Admit weight: 82.2 kg. IBW:78.18 kg (105% IBW) ESTIMATED NEEDS (CCU): Calories: 6173-8028 kcal/day (25-30 kcal/kg BW) Protein: 66-123 g/day (0.8-1.5 g/kg BW) Fluid: 8002-9754 ml/day (Approx. 30-35 ml/kg BW) NUTRITION DIAGNOSIS: 1) Potential chewing/swallowing issues related to severe shortness of breath, as evidenced by pending swallow evaluation.---RESOLVED. 2) Inadequate oral intake related to inability to consume sufficient energy, as evidenced by minimal PO intake 8 days prior to admit.---IMPROVED. INTERVENTION: 1) Will add nutrition supplements to encourage adequate nutrition. MONITOR/EVALUATE: Diet tolerance, PO intake, labs, GI/nutrition status. Follow per moderate nutrition risk guidelines.
--- NOTE | 2016-11-07 11:20 | NUR ---
Respiratory Trial off HFNC. Pt on 5L oxy mask saturation 96%. HR 75, RR 36. Pt sitting up in chair, tolerating well at this time.
--- NOTE | 2016-11-07 11:53 | NUR ---
Evaluation completed. Please go to "Notes" then click on "Assessments and Notes" (bottom left corner of screen). Then select appropriate discipline tab on top of screen.
[2016-11-07] MEDS: HYDROcodone-APAP 5-325 mg Tablet PO PRN (14:05)
--- NOTE | 2016-11-07 16:58 | PROG NOTE ---
[address] [address] PROGRESS NOTE PATIENT: SERENA HAGEN : 1965 MR#: [id number] ADMIT: 11/01/2016 JOB ID: [id number] DATE: 11/07/2016 PULMONARY FOLLOWUP NOTE: PROBLEM: Legionnaires' disease. SUBJECTIVE: Feeling better. Breathing more comfortably. Some cough. Minimal sputum production. Finds that the cough causes significant abdominal pain. Has not had a bowel movement. Is eating better. Ate a fairly good breakfast and lunch in the last two days. indicates mental confusion is markedly improved. OBJECTIVE: Temperature 37.1. Pulse 64-72, respiratory rate 26. Blood pressure 133/68. O2 sat on high-flow cannula with an FiO2 0.45 and high flow of 30 resulted in an O2 sat of 93%. General appearance: Weak-appearing, somewhat tired, but otherwise appropriate, answering all questions accurately. Eyes: Conjunctivae are pink. Chest: Fair breath sounds bilaterally. There are crackles throughout the right lung silva, sparing only the apex. Crackles at the left lower and maybe the left mid lung field. No use of accessory muscles. No wheeze. Heart: Regular rhythm. Heart tones normal. Abdomen is soft. Nondistended. Quite tender over left lateral subcostal area. No rib tenderness. Pain maps out to about a palm-sized area under the left costal margin at about the anterior axillary line. No fluctuance. No swelling. No evidence of hematoma. LABORATORY DATA: Shows a white count of 7000, with 65 polymorphonuclears, no bands, 17 lymphs, 11 monocytes. Hemoglobin 11.8, relatively stable. Platelet count 304,000 and rising. Sodium 139, potassium 3.6, chloride 102, CO2 is 27, BUN 16, creatinine stable at 0.4. Calcium 7.2 with an albumin of 2. Total bilirubin 0.6. AST 138 and falling. ALT 99 and falling. Alkaline phosphatase 64, which is normal and stable. Chest x-ray shows persistent diffuse airspace infiltrates. No particular change. ASSESSMENT: Legionnaires' disease. Confusion has, for the most part, cleared. Liver abnormalities improving. Oxygenation much improved and I suspect we can get him off the high-flow system and onto an OxyMask. Appetite improving. Need to get physical therapy involved. Get him up for strengthening and mobility. PLAN: 1. Continue present regimen. 2. Have RT evaluate for alternative O2 delivery device, not utilizing high-flow or positive end- expiratory pressure. 3. Continue present regimen. The small blip in the transaminases yesterday resolved completely. Can either restart the rifampin, as this is not rifampin hepatotoxicity, or continue finish up without the rifampin. Patient improving clinically. Has made marked improvement. Will stop following on a routine basis. If any questions or problems arise, please feel free to contact us.
--- NOTE | 2016-11-07 17:18 | NUR ---
Social Work Note: Continued Discharge Planning Data& Assessment: Per MD in morning rounds, pt is not medically ready for discharge at this time and pt respiratory status is still fragile at this point in time. PT was previously on high flow 02. SW met with pt at bedside to check in and assess for any unmet needs. Pt is still not feeling well but was able to work with PT today. PT plans to continue to follow pt and assess his respiratory needs during activity. Pt denies any other needs at this time. SW to follow up with pt regarding CD Assessment and resources. SW to continue to follow. Plan:Anticipated discharge home via POV when medically ready. SW to follow up with pt regarding CD Assessment and resources. SW to continue to follow for respiratory and discharge planning needs. SLAVA Dove
--- NOTE | 2016-11-07 17:42 | NUR ---
Assume Care Assumed care from Juliet NASH about 1520 once patient was transferred from CCU to PCC status. Checked on the patient and his and there were no needs at that time. Care continues.
--- NOTE | 2016-11-07 21:12 | PCM.PNMED ---
Subjective Date of Service Nov 07, 2016 Subjective Overnight: Weaning off Precedex, improving confusion and O2 requirements. Today: He is much less confused and more comfortable. He reports less shortness of breath, but continues to have wheezing. Denies coughing, fevers, chills, N/V/ D. Currently on high-flow nasal cannula at FiO2 0.3 Exam Vital Signs Vital Sign - Last Date Time Temp Pulse Resp B/P Pulse Ox O2 Delivery O2 Flow Rate FiO2 11/07/16 09:24 72 34 96 Nasal Cannula 30 35 11/07/16 07:50 37.1 133/68 Intake and Output 11/06/16 11/06/16 11/07/16 Cumulative From/Thru 14:59 22:59 06:59 11/01/16 13:52 - 11/07/16 06:57 Intake Total 731 ml 600 ml 54504 ml Output Total 650 ml 400 ml 8650 ml Balance 81 ml 200 ml 20160 ml Intake Oral 600 ml 7518 ml IV Total 731 ml 62981 ml Output Urine Total 650 ml 400 ml 8650 ml # Voids 1 # Bowel Movements 0 3 Exam General: Alert, Oriented, Cooperative, No Acute Distress Head: Normocephalic, atraumatic. External ears normal. Eyes: PERRLA, EOMI. Anicteric sclerae. Mouth: Mouth Normal, Mucous Membranes Moist/[place] Neck: Neck supple with full range of motion. Chest & Lungs: Wheezes present bilaterally Cardiovascular: Regular Rate/Rhythm, Normal S1, Normal S2, No Murmurs/Rubs/ Gallops Abdomen: Non-tender, Non-distended, No masses, Normoactive bowel tones, Soft Musculoskeletal: Normal Range of Motion Extremities: No cyanosis/clubbing/edema bilaterally Neurological: Grossly Neurologically Intact, Normal Speech IVs and Medications Medications Reviewed: Medications were reviewed in detail Lab and Diagnostics Result Diagram: 11/07/16 0250 11/07/16 0250 X-Rays, CTs and MRIs X-RAY CHEST ONE VIEW, PORTABLE IMPRESSION: Persistent bilateral opacities most suggestive of pneumonia and/or edema. No appreciable interval change. Dictated by: Leyla Harris M.D. on 11/05/2016 at 8:24 X-RAY CHEST ONE VIEW, PORTABLE IMPRESSION: 1. Diffuse pulmonary edema and/or pneumonia similar to prior examination and persistent right pleural effusion is present. Dictated by: Blake MOON Interpreted: Leyla Harris MD on 11/04/2016 at 8:25 Additional Diagnostics ABG DateTimeAnalyzed 05:42:00 -_ pH ____7.482 - 7.350 7.450 pCO2 ___34.9__ -mmHg 35.0 45.0 pO2 ___85.2__ -mmHg 69.0 116 HCO3- ___25.8__ -mmol/L 22.0 26.0 ABG DateTimeAnalyzed 14:20:00 -_ pH ____7.442 - 7.350 7.450 pCO2 ___34.1__ -mmHg 35.0 45.0 pO2 ___51.6__ -mmHg 69.0 116 HCO3- ___22.9__ -mmol/L 22.0 26.0 Assessment & Plan 51-year-old male with dry cough, headache, weakness, fever, chills for the last week with increasing weakness and ground-level fall the day prior to admission was found to have right lower lobe pneumonia. 1. Acute hypoxic respiratory failure, present on admission. Active and improving. - 2nd to Legionella pneumonia. - Continue High flow O2 and supportive treatments below. Current settings of 16 FiO2 down from 70. - Pulmonology following, time and recommendations appreciated. - CXR as above. ABG as above. - Transfer out of CCU. - Transition off High flow O2 to OXY mask. 2. Legionella pneumonia, present on admission, Active. - Switch azithromycin 500 mg IV daily to PO tomorrow. - Discontinued rifampin - DuoNebs when necessary. - DuoNeb every 4 hours, guaifenesin every 12 hours - Dr. Lopez with infectious disease following, time and recommendations appreciated. 3. Elevated transaminases, acute. Not present on admission. Improving. - Possibly secondary to Legionella pneumonia vs rifampin use. - Monitor CMP 4. Possible Alcohol use disorder with withdrawal. present on admission. Treated. - Patient reportedly drinks at least 2 alcoholic beverages per night his last drink was 6 days ago.Patient was switched to Precedex ggt and CIWA protocol was discontinued. - Wean Precedex as tolerated - Thiamine. 5. Mild hyponatremia/elevated creatinine likely prerenal VIDAL, present on admission, resolved - Likely 2nd to legionella pneumonia. 6. Hypokalemia, present on admission, active - Replace with IV potassium 7. Mild thrombocytopenia - Likely 2nd to legionella pneumonia. - hold pharmaceutic DVT prophylaxis Chronic issues known prior to admission, present on admission Smoker -When necessary nicotine patch High risk meds include IV diazepam however patient has not received this for CIWA protocol. Disposition inpatient likely here for > 2 midnights. Will discharge home when medically stable. Pain Evaluation: Adequate Pain Control GI Prophylaxis: Proton Pump Inhibitor VTE Prophylaxis: SCDs VTE Mechanical Devices: Intermittant Pneumatic CD Resuscitation Status: CPR: Attempt Resuscitation Time spent 35 minutes Attending Statement Patient seen and examined with house staff. Agree with all attached documentation. MISA CLAY DO Nov 07, 2016 09:45 Tello Prabhakar MD Nov 16, 2016 07:15
--- NOTE | 2016-11-07 21:12 | PROG NOTE ---
[address] [address] PROGRESS NOTE PATIENT: SERENA HAGEN : 1965 MR#: [id number] ADMIT: 11/01/2016 JOB ID: [id number] PULMONARY CRITICAL CARE FOLLOWUP NOTE: DATE: 11/07/2016 PROBLEM: Legionnaires pneumonia. SUBJECTIVE: Feeling better. Still with mild shortness of breath though overall his breathing is much more comfortable. Some cough. No particular problem with the sputum. No chest pain. No abdominal pain. Ate fairly well the last two meals. Still without a bowel movement, however. No pleuritic chest pain. indicates he is less confused. OBJECTIVE: Temperature 36.7 with T-max being 37.1, pulse 64-72, respiratory rate 26-34, blood pressure with 133/68, O2 sat on FiO2 of 0.45 with flow of 30 L a minute shows O2 sats in the 96 range. I and O shows 1.8 liters in, 1.4 liters out. PHYSICAL EXAMINATION: Mental status: The patient accurate in his answers. Speaking easily. Eyes: Conjunctivae are pink. Chest with diminished breath sounds. A few crackles in the right lower lung field, maybe on the left base. Mid and upper lung silva are clear. No use of accessory muscles. Heart: Regular rhythm. Heart tones normal. Abdomen is soft. Nondistended. Nontender. Bowel tones present. Extremities: No pretibial edema. LABORATORY DATA: Shows a white count of 7000 with 65 polymorphonuclears, 17 lymphs, 11 monos, 3 eosinophils. Hemoglobin stable at 11.8. Platelet count rising at 304,000. Sodium 139, potassium 3.6, chloride 102, CO2 is 27. BUN 16 and stable. Creatinine 0.4 and stable. Calcium 7.2 and stable with albumin of 2. Total bilirubin 0.6. AST 138, down from 202 yesterday. ALT 99, down from 108 yesterday. Chest x-ray shows bilateral diffuse airspace disease. ASSESSMENT: Legionnaires disease. Clinically doing very well. His confusion has resolved. His oxygenation is improving. I suspect we can get him off the high-flow system and on either nasal cannula or OxyMask. The mild elevation in transaminases has fallen back to where they were. No real good evidence for rifampin hepatotoxicity. Presume that the elevated transaminases were from the underlying Legionnaires disease. Will discuss with Infectious Disease whether we should restart the rifampin or just continue on with the azithromycin since he is doing so well. The patient increasing in strength. Will have Physical Therapy come and help with strengthening and mobilization. PLAN: 1. Continue current regimen. 2. Discuss rifampin with ID. 3. Physical therapy. Patient clinically improving very nicely from a pulmonary standpoint. Will stop following on a routine basis. Again, thank you for asking us to become involved in the care of this most pleasant and interesting individual. If any future questions arise, please feel free to contact us.
[2016-11-08] VITALS (8 sets, daily range): BP systolic 126–154; BP diastolic 71–81; PULSE 62–75; RESP 18–28; O2SAT 93–97
[2016-11-08 03:08] LABS: BASOPHILS % (AUTO) 0.7 % (0-3); EOSINOPHILS % (AUTO) 2.5 % (0-5); MONOCYTES % (AUTO) 15.8 % (4-12); Mean Corpuscular Hemoglobin 30.8 pg (27.0-35.0); Mean Corpuscular Volume 91.7 fL (81-100); Platelet Count 360 bil/L (150-400)
--- NOTE | 2016-11-08 04:14 | NUR ---
resp status pt a/o times three, estrada-weak hob up, resp rate 22-30, sob with exertion, ls- course rhonchi left base and decrease on left, rhonchi on right lower and mid lobe, decreased on right also, enc cdb, no sputum noted, continuous pulse ox on, sats on four liters o2 per nc=94-95%, mildly diaphoretic, tele- sr, hr 60's, bp stable, afebrile, denies cp, order noted for tele to be discontinued, pt taken off tele, denies n/v, abd round, hyperactive, no bm, po intake good, shara uop per urinal, adequate amount, non pitting edema to feet/ankles/calf areas, see assessment charting, pt moved from 2013 to 2003 during the night, continuous pulse ox continued, pt's spent night in room on pull out couch,
[2016-11-08] MEDS: Pantoprazole 20 mg ER24 Tablet PO SCH ×2 (06:32→19:58)
[2016-11-08] MEDS: Multivit-Miner-Folic Acid-Iron Tablet PO SCH (08:10)
[2016-11-08] MEDS: guaiFENesin 600 mg ER12 Tablet PO SCH ×2 (08:10→19:58)
--- NOTE | 2016-11-08 09:38 | PROG NOTE ---
[address] [address] PROGRESS NOTE PATIENT: SERENA HAGEN : 1965 MR#: [id number] ADMIT: 11/01/2016 JOB ID: [id number] DATE: 11/08/2016 INFECTIOUS DISEASE FOLLOW UP NOTE: REASON FOR FOLLOW UP: Legionnaires disease with severe pneumonia and respiratory failure. INTERVAL HISTORY: The patient has now moved out of the ICU and is in the [facility]. He is feeling much improved by his report and is up having breakfast this morning. He denies any fevers, chills or sweats. He still has quite a productive cough and some minimal residual right pleuritic chest pain but his breathing is getting much easier. He is still requiring some nasal oxygen but states he is getting up and around and walking a bit already. His GI symptoms including diarrhea have completely resolved. PHYSICAL EXAMINATION: Reveals an afebrile gentleman, temperature 36.5, pulse 62, respiratory rate 20, blood pressure 150/81. He is saturating 96% on 4 L. Mental status is clear. Oral cavity negative. Lungs with crackles at the right base still but better than before in terms of overall air flow. Cardiac tones regular rate and rhythm without murmur. Abdomen is benign. No skin rash. LABORATORIES: Include a white count of 7600, platelet count 360. Creatinine is 0.37. LFTs continue to moderate. His AST is 135. ALT 112, no additional positive micros have been reported since the urine for Legionella. Yesterday's chest x-ray shows persistent bilateral pneumonia. IMPRESSION: This patient is rapidly improving day by day with respect to his very severe Legionnaires disease. He still has some residual LFT elevation which could be due to the Legionnaires itself, the rifampin which has been discontinued or alcohol use. In any event, it seems to be improving along with everything else. RECOMMENDATIONS: 1. Azithro 500 a day through November 11. 2. The patient will require a follow up chest x-ray probably in six weeks or so to demonstrate that his infiltrates have continued to resolve. Note that infiltrates of Legionnaires can take as long as three months to completely resolve but in this 51-year-old gentleman with smoking history, we need to make absolutely sure that the infiltrates do resolve and there is not some hidden malignancy behind the infiltrates. 3. ID will go ahead and sign off as there are no active issues at this point.
[2016-11-08] MEDS: Dexmedetomidine 400 mCg/100 mL 400 MCG in IV Premix 1 EACH IV SCH (10:05)
--- NOTE | 2016-11-08 11:02 | PCM.PNMED ---
Subjective Date of Service Nov 08, 2016 Subjective Overnight: Weaning off Precedex, improving confusion and O2 requirements. Today: He is much less confused and more comfortable. He reports less shortness of breath, but continues to have wheezing. Denies coughing, fevers, chills, N/V/ D. Currently on nasal cannula at 4 L. ambulating in halls without difficulty. Exam Vital Signs Vital Sign - Last Date Time Temp Pulse Resp B/P Pulse Ox O2 Delivery O2 Flow Rate FiO2 11/08/16 10:35 94 Nasal Cannula 2.00 11/08/16 08:06 36.5 62 20 150/81 11/07/16 09:24 35 Intake and Output 11/07/16 11/07/16 11/08/16 Cumulative From/Thru 15:00 23:00 07:00 11/01/16 13:52 - 11/08/16 05:24 Intake Total 435 ml 300 ml 240 ml 20399 ml Output Total 450 ml 900 ml 00689 ml Balance 435 ml -150 ml -660 ml 95976 ml Intake Oral 300 ml 240 ml 8058 ml IV Total 435 ml 41998 ml Output Urine Total 450 ml 900 ml 99935 ml # Voids 1 # Bowel Movements 2 0 5 Exam General: Alert, Oriented, Cooperative, No Acute Distress Head: Normocephalic, atraumatic. External ears normal. Eyes: PERRLA, EOMI. Anicteric sclerae. Mouth: Mouth Normal, Mucous Membranes Moist/[place] Neck: Neck supple with full range of motion. Chest & Lungs: Wheezes present bilaterally Cardiovascular: Regular Rate/Rhythm, Normal S1, Normal S2, No Murmurs/Rubs/ Gallops Abdomen: Non-tender, Non-distended, No masses, Normoactive bowel tones, Soft Musculoskeletal: Normal Range of Motion Extremities: No cyanosis/clubbing/edema bilaterally Neurological: Grossly Neurologically Intact, Normal Speech IVs and Medications Medications Reviewed: Medications were reviewed in detail Lab and Diagnostics Result Diagram: 11/08/165 11/08/16254 X-Rays, CTs and MRIs X-RAY CHEST ONE VIEW, PORTABLE IMPRESSION: Persistent bilateral opacities most suggestive of pneumonia and/or edema. No appreciable interval change. Dictated by: Leyla Harris M.D. on 11/05/2016 at 8:24 X-RAY CHEST ONE VIEW, PORTABLE IMPRESSION: 1. Diffuse pulmonary edema and/or pneumonia similar to prior examination and persistent right pleural effusion is present. Dictated by: Blake MOON Interpreted: Leyla Harris MD on 11/04/2016 at 8:25 Additional Diagnostics [facility] DateTimeAnalyzed 05:42:00 -_ pH ____7.482 - 7.350 7.450 pCO2 ___34.9__ -mmHg 35.0 45.0 pO2 ___85.2__ -mmHg 69.0 116 HCO3- ___25.8__ -mmol/L 22.0 26.0 AB DateTimeAnalyzed 14:20:00 -_ pH ____7.442 - 7.350 7.450 pCO2 ___34.1__ -mmHg 35.0 45.0 pO2 ___51.6__ -mmHg 69.0 116 HCO3- ___22.9__ -mmol/L 22.0 26.0 Assessment & Plan 51-year-old male with dry cough, headache, weakness, fever, chills for the last week with increasing weakness and ground-level fall the day prior to admission was found to have right lower lobe pneumonia. 1. Acute hypoxic respiratory failure, present on admission. Active and improving. - 2nd to Legionella pneumonia. - Continue High flow O2 and supportive treatments below. Current settings of 16 FiO2 down from 70. - Pulmonology following, time and recommendations appreciated. - CXR as above. ABG as above. - Transition off High flow O2 to OXY mask. 2. Legionella pneumonia, present on admission, Active. - Switch azithromycin 500 mg IV daily to PO. - Discontinued rifampin yesterday. - DuoNebs when necessary. - DuoNeb every 4 hours, guaifenesin every 12 hours - Dr. Lopez with infectious disease has signed off with recommendations. - Azithro 500 a day through November 11. - The patient will require a follow up chest x-ray probably in six weeks or so to demonstrate that his infiltrates have continued to resolve. Note that infiltrates of Legionnaires can take as long as three months to completely resolve but in this 51-year-old gentleman with smoking history, we need to make absolutely sure that the infiltrates do resolve and there is not some hidden malignancy behind the infiltrates. 3. Elevated transaminases, acute. Not present on admission. Improving. - Possibly secondary to Legionella pneumonia vs rifampin use. - Monitor CMP. 4. Possible Alcohol use disorder with withdrawal. present on admission. Treated. - Patient reportedly drinks at least 2 alcoholic beverages per night his last drink was 8 days ago. Patient was switched to Precedex ggt and CIWA protocol was discontinued. - Wean Precedex as tolerated. - Thiamine. 5. Mild hyponatremia/elevated creatinine likely prerenal VIDAL, present on admission, resolved - Likely 2nd to legionella pneumonia. 6. Hypokalemia, present on admission, active - Replace with IV potassium 7. Mild thrombocytopenia - Likely 2nd to legionella pneumonia. - hold pharmaceutic DVT prophylaxis 8. Septic encephalopathy, POA. This is gradually improving with treatment of his legionnaires disease. Chronic issues known prior to admission, present on admission Smoker -When necessary nicotine patch High risk meds include IV diazepam however patient has not received this for CIWA protocol. Disposition inpatient likely here for 2 more midnights. Will discharge home when medically stable. Pain Evaluation: Adequate Pain Control GI Prophylaxis: Proton Pump Inhibitor VTE Prophylaxis: SCDs VTE Mechanical Devices: Intermittant Pneumatic CD Resuscitation Status: CPR: Attempt Resuscitation Time spent 35 minutes Attending Statement Patient seen and examined with house staff. Agree with all attached documentation. MISA CLAY DO Nov 08, 2016 11:00 Tello Prabhakar MD Nov 16, 2016 07:21
--- NOTE | 2016-11-08 11:24 | NUR ---
Ambulate w/Nsg Pt released to ambulate w/nsg w/o AD CGA 2-3x/day as pt tolerates. PT will cont to see daily for continued progression of PT goals.
[2016-11-08] MEDS: Albuterol 2.5 mg/3 mL Inhalation Solution NEB PRN (15:04)
--- NOTE | 2016-11-08 19:24 | NUR ---
O2 Pt on 4L via nasal cannula at beginning of shift with SPO2 sats in the mid-upper 90s and Pt denied SOB. Pt's O2 decreased from 4L to 2L via nasal cannula, with SPO2 sats in the low to mid 90s, Pt denied increase in SOB at this time. Pt worked with PT today and required increasing O2 during therapy, see PT note for details. Pt reported some mild SOB later in the shift, SPO2 sat 93% at this time, RT notified who gave Pt a breathing Tx, Pt reported that breathing Tx helped.
[2016-11-08] MEDS: HYDROcodone-APAP 5-325 mg Tablet PO PRN (19:58)
[2016-11-09] VITALS (7 sets, daily range): BP systolic 135–161; BP diastolic 74–85; PULSE 64–73; RESP 16–24; O2SAT 90–95
[2016-11-09 02:38] LABS: BASOPHILS % (AUTO) 0.8 % (0-3); EOSINOPHILS % (AUTO) 2.7 % (0-5); MONOCYTES % (AUTO) 17.8 % (4-12); Mean Corpuscular Hemoglobin 31.3 pg (27.0-35.0); Mean Corpuscular Volume 92.6 fL (81-100); NEUTROPHILS % (AUTO) 57.4 % (40-74); Platelet Count 375 bil/L (150-400)
--- NOTE | 2016-11-09 05:00 | NUR ---
Pain Pt c/o of pain in his left rib area 10/10 from coughing x1 this shift. Administered 1 Tab Vicodin and effective no further complaints this shift. Pt currently on 2L NC and tolerating well, no c/o SOB. VSS and pt is no longer on Tele.
[2016-11-09] MEDS: Pantoprazole 20 mg ER24 Tablet PO SCH ×2 (07:43→20:24)
[2016-11-09] MEDS: Multivit-Miner-Folic Acid-Iron Tablet PO SCH (07:44)
[2016-11-09] MEDS: guaiFENesin 600 mg ER12 Tablet PO SCH ×2 (07:44→20:24)
--- NOTE | 2016-11-09 07:46 | PCM.PNMED ---
Subjective Date of Service Nov 09, 2016 Subjective 51-year-old male with dry cough/headache/weakness/chills/fevers initially seen by urgent care 1 week ago, presented again today after he fell due to weakness yesterday found to have right lower pneumonia. No recent dental procedures no dysphagia. 2 episodes of choking in the last 10 years he has upper dentures. No trauma to the right chest wall. Not bedridden. Daughter had a head cold preceding his infection. Poor eating habits lately for urination diarrhea 3 days ago but regular stools today. No pleuritic chest pain no sinus congestion no sore throat. Patient was diagnosed with Legionella pneumonia and placed on high flow O2 at 70 FiO2. Since then he was placed on appropriate Abx and has improved his O2 requirements as well as his concussion. He is A&O x3, ambulates without difficulty and currently requiring minimal O2 at 2L by nasal cannula. Overnight: Weaning off Precedex, improving confusion and O2 requirements. Today: He is much less confused and more comfortable. He reports less shortness of breath, but continues to have minor wheezing. Denies coughing, fevers, chills , N/V/D. Currently on nasal cannula at 2 L. ambulating in halls without difficulty. Exam Vital Signs Vital Sign - Last Date Time Temp Pulse Resp B/P Pulse Ox O2 Delivery O2 Flow Rate FiO2 11/09/16 02:38 37.1 71 20 153/77 95 Nasal Cannula 2.00 11/07/16 09:24 35 Intake and Output 11/08/16 11/08/16 11/09/16 Cumulative From/Thru 15:00 23:00 07:00 11/01/16 13:52 - 11/09/16 05:01 Intake Total 1040 ml 400 ml 46812 ml Output Total 1650 ml 325 ml 19340 ml Balance -610 ml 75 ml 81361 ml Intake Oral 1040 ml 400 ml 9498 ml IV Total 32655 ml Output Urine Total 1650 ml 325 ml 47798 ml # Voids 1 # Bowel Movements 0 5 Exam General: Alert, Oriented, Cooperative, No Acute Distress Head: Normocephalic, atraumatic. External ears normal. Eyes: PERRLA, EOMI. Anicteric sclerae. Mouth: Mouth Normal, Mucous Membranes Moist/[place] Neck: Neck supple with full range of motion. Chest & Lungs: Wheezes present bilaterally but improving daily. Cardiovascular: Regular Rate/Rhythm, Normal S1, Normal S2, No Murmurs/Rubs/ Gallops Abdomen: Non-tender, Non-distended, No masses, Normoactive bowel tones, Soft Musculoskeletal: Normal Range of Motion Extremities: No cyanosis/clubbing/edema bilaterally Neurological: Grossly Neurologically Intact, Normal Speech IVs and Medications Medications Reviewed: Medications were reviewed in detail Lab and Diagnostics Result Diagram: 11/09/1622411/09/16224 X-Rays, CTs and MRIs X-RAY CHEST ONE VIEW, PORTABLE IMPRESSION: Persistent bilateral opacities most suggestive of pneumonia and/or edema. No appreciable interval change. Dictated by: Leyla Harris M.D. on 11/05/2016 at 8:24 X-RAY CHEST ONE VIEW, PORTABLE IMPRESSION: 1. Diffuse pulmonary edema and/or pneumonia similar to prior examination and persistent right pleural effusion is present. Dictated by: Blake Stubbs [facility] Interpreted: Leyla Harris MD on 11/04/2016 at 8:25 Additional Diagnostics ABG DateTimeAnalyzed 05:42:00 -_ pH ____7.482 - 7.350 7.450 pCO2 ___34.9__ -mmHg 35.0 45.0 pO2 ___85.2__ -mmHg 69.0 116 HCO3- ___25.8__ -mmol/L 22.0 26.0 ABG DateTimeAnalyzed 14:20:00 -_ pH ____7.442 - 7.350 7.450 pCO2 ___34.1__ -mmHg 35.0 45.0 pO2 ___51.6__ -mmHg 69.0 116 HCO3- ___22.9__ -mmol/L 22.0 26.0 Assessment & Plan 51-year-old male with dry cough, headache, weakness, fever, chills for the last week with increasing weakness and ground-level fall the day prior to admission was found to have right lower lobe pneumonia. 1. Acute hypoxic respiratory failure, present on admission. Active and improving. - 2nd to Legionella pneumonia. - Continue High flow O2 and supportive treatments below. Current settings of 16 FiO2 down from 70. - Pulmonology following, time and recommendations appreciated. - CXR as above. ABG as above. - O2 at 2 L Nasal cannula. 2. Legionella pneumonia, present on admission, Active. - DuoNeb every 4 hours and PRN, guaifenesin every 12 hours - Dr. Lopez with infectious disease has signed off with recommendations. - Azithro 500 a day through November 11. - The patient will require a follow up chest x-ray probably in six weeks or so to demonstrate that his infiltrates have continued to resolve. Note that infiltrates of Legionnaires can take as long as three months to completely resolve but in this 51-year-old gentleman with smoking history, we need to make absolutely sure that the infiltrates do resolve and there is not some hidden malignancy behind the infiltrates. 3. Elevated transaminases, acute. Not present on admission. Improving. - Possibly secondary to Legionella pneumonia vs rifampin use. - Monitor CMP. 4. Possible Alcohol use disorder with withdrawal. present on admission. Treated. - Patient reportedly drinks at least 2 alcoholic beverages per night his last drink was 8 days ago. Patient was switched to Precedex ggt and CIWA protocol was discontinued. - Wean Precedex as tolerated. - Thiamine. 5. Mild hyponatremia/elevated creatinine likely prerenal VIDAL, present on admission, resolved - Likely 2nd to legionella pneumonia. 6. Hypokalemia, present on admission, active - Replace with IV potassium 7. Mild thrombocytopenia - Likely 2nd to legionella pneumonia. - hold pharmaceutic DVT prophylaxis Chronic issues known prior to admission, present on admission Smoker -When necessary nicotine patch High risk meds include IV diazepam however patient has not received this for CIWA protocol. Disposition inpatient likely here for 2 more midnights. Will discharge home when medically stable. Pain Evaluation: Adequate Pain Control GI Prophylaxis: Proton Pump Inhibitor VTE Prophylaxis: SCDs VTE Mechanical Devices: Intermittant Pneumatic CD Resuscitation Status: CPR: Attempt Resuscitation Attending Statement The patient was seen and examined together with Dr. Clay on 11/09/2016 and I agree with the history, exam and plan as outlined in the note above. . MISA CLAY DO Nov 09, 2016 07:44 Jose Ponce MD Nov 10, 2016 07:44
--- NOTE | 2016-11-09 11:15 | DRSVH ---
PROCEDURE: X-RAY CHEST ONE VIEW, PORTABLE ([id number]) INDICATIONS: legionella pneumonia TECHNIQUE: One view of the chest was acquired. COMPARISON: [facility], CR, XR CHEST 1VW (PORTABLE), 11/07/2016, 4:41. FINDINGS: Surgical changes and devices: None. Lungs and pleura: Interval decrease in diffuse, widespread bilateral interstitial and airspace opacit ies which have not resolved. Persistent small small right pleural effusion. No pneumothorax. Mediastinum: Mediastinal contours appear normal. Heart size is normal. Bones and chest wall: No suspicious bony lesions. Overlying soft tissues appear unremarkable. IMPRESSION: Decreasing edema and/or diffuse bilateral multifocal pneumonia. Dictated by: Blake Stubbs RRA Interpreted: Javed Villalpando MD on 11/09/2016 at 11:13 Transcribed by: CECILIA on 11/09/2016 at 11:14 Approved by: Javed Villalpando M.D. on 11/09/2016 at 17:46
--- NOTE | 2016-11-09 19:20 | NUR ---
O2 Pt on 2L via nasal cannula with SPO2 sats 93/94%, O2 removed, SPO2 sats on RA at rest 92/93%, Pt denied increase in SOB with O2 off. Pt ambulated in hallway with PT on RA, see PT note for more details.
[2016-11-09] MEDS: HYDROcodone-APAP 5-325 mg Tablet PO PRN (20:24)
[2016-11-10 03:04] LABS: BASOPHILS % (AUTO) 0.5 % (0-3); EOSINOPHILS % (AUTO) 1.6 % (0-5); MONOCYTES % (AUTO) 17.5 % (4-12); Mean Corpuscular Hemoglobin 30.8 pg (27.0-35.0); Mean Corpuscular Volume 93.2 fL (81-100); NEUTROPHILS % (AUTO) 53.7 % (40-74); Platelet Count 417 bil/L (150-400)
[2016-11-10 03:09] VITALS: BP 150/70; PULSE 73; RESP 24; O2SAT 93
--- NOTE | 2016-11-10 04:57 | NUR ---
Activity/O2 Pt able to ambulate around unit x1 this shift with no SOB reported. Pt SpO2 91-93% during ambulation. NO O2 needed. Pt continues to improve and become stronger. VSS and no Tele.
[2016-11-10 07:57] VITALS: BP 143/91; PULSE 65; RESP 20; O2SAT 92
[2016-11-10] MEDS: Pantoprazole 20 mg ER24 Tablet PO SCH (08:00)
[2016-11-10] MEDS: guaiFENesin 600 mg ER12 Tablet PO SCH (08:01)
[2016-11-10] MEDS: Multivit-Miner-Folic Acid-Iron Tablet PO SCH (08:01)
[2016-11-10 12:08] VITALS: BP 119/70; PULSE 70; RESP 18; O2SAT 93
--- NOTE | 2016-11-10 12:23 | PCM.DIMED ---
MISA CLAY DO 11/10/16 1222: Discharge Instructions Date of Service Nov 10, 2016 Dates of Hospitalization Nov 01, 2016 at 17:01 Discharge Diagnosis Discharge Diagnosis 1. Acute hypoxic respiratory failure, present on admission. Resolved. 2. Legionella pneumonia, present on admission, treated and resolved. . 3. Elevated transaminases, acute. Not present on admission. Improving. 4. Possible Alcohol use disorder with withdrawal. present on admission. Treated. 5. Mild hyponatremia/elevated creatinine likely prerenal VIDAL, present on admission, resolved 6. Hypokalemia, present on admission, resolved. 7. Mild thrombocytopenia, present on admission, resolved. 8. tobacco use disorder. present on admission. Resolved. Medication Instructions Azithromycin 500 mg once a day for 1 more day. Diet No restrictions Activity No restrictions Call your provider Fever or Chills, Shortness of breath, Chest pain Patient Instructions Furthermore, The patient will require a follow up chest x-ray probably in six weeks or so to demonstrate that his infiltrates have continued to resolve. Note that infiltrates of Legionnaires can take as long as three months to completely resolve but in this 51-year-old gentleman with smoking history, we need to make absolutely sure that the infiltrates do resolve and there is not some hidden malignancy behind the infiltrates. Continue to use your Acapella and incentive spirometer. Follow-up plan Follow up with your primary care physician in 1 weeks time. - At that time you should address activity levels and note whether or not there has been improvement in the last 5 days. - Discuss a plan for returning back to work. - Continue to Stop smoking. Do not return to work until you meet with your primary care physician within 1 week. Furthermore, The patient will require a follow up chest x-ray probably in six weeks or so to demonstrate that his infiltrates have continued to resolve. Note that infiltrates of Legionnaires can take as long as three months to completely resolve but in this 51-year-old gentleman with smoking history, we need to make absolutely sure that the infiltrates do resolve and there is not some hidden malignancy behind the infiltrates. Follow-up Provider: Michael Eng DO Follow-up with PCP in: 1 week Jose Ponce MD 11/13/16 0817: Discharge Instructions Attending's Statement The patient was seen and examined together with Dr. Clay on 11/10/2016 and I agree with the history, exam and plan as outlined in the note above. . MISA CLAY DO Nov 10, 2016 12:22 Jose Ponce MD Nov 13, 2016 08:17
--- NOTE | 2016-11-10 13:42 | NUR ---
Discharge Pt just discharged to home with family after receiving final dose of azithromycin to take home from pharmacist. Pt also received IS and Acapella with instruction prior to discharge. Pt given discharge educational materials on comm. acquired pneumonia, azithromycin, and legionnaire's. Pt instructed that he would need to have a f/u CXR in ~6 weeks. Pt instructed to f/u with PCP, appointment made with Dr. Eng 11/17/16 at 1300, phone number supplied. Pt verbalized understanding of all discharge instructions. All belongings accompanied Pt at time of discharge.
--- NOTE | 2016-11-10 14:11 | NUR ---
Social Work: Discharge D: Pt discussed in am rounds. pt is medically stable for discharge home. PT recommendation is for Home via POV. Pt has been I during admission. During admission pt was placed on CIWA protocol and reported to MD that he drinks 2 drinks every evening. BEAM WORKER attempted to meet with pt as he was being discharged. Pt declined to speak with BEAM WORKER in length about CD/ETOH use but willingly accepted CD outpatient resources and [employer] handout. Pt states he will follow up with outpatient counseling if necessary. A: Pt who lives at home with his and is I. P: Pt to discharge home today via POV. No sw needs identified. Pt provided with CD resources. SLAVA Palacios
--- NOTE | 2016-11-24 06:52 | PCM.DC.MED ---
Discharge Summary Date of Service Nov 10, 2016 Dates of Hospitalization Date of Hospital Admission Nov 01, 2016 at 17:01 Date of Discharge: Dec 09, 2015 Providers: Admitting Physician: Robyn Foster MD Primary Care Physician: Michael Eng DO Attending Physician: Robyn Foster MD Diagnosis at Time of Discharge Diagnosis at Time of Discharge 1. Acute hypoxic respiratory failure, present on admission. Resolved. 2. Legionella pneumonia, present on admission, treated and resolved. . 3. Elevated transaminases, acute. Not present on admission. Improving. 4. Possible Alcohol use disorder with withdrawal. present on admission. Treated. 5. Mild hyponatremia/elevated creatinine likely prerenal VIDAL, present on admission, resolved 6. Hypokalemia, present on admission, resolved. 7. Mild thrombocytopenia, present on admission, resolved. 8. tobacco use disorder. present on admission. Resolved. Procedures XRay, CTs & MRIs X-RAY CHEST ONE VIEW, PORTABLE IMPRESSION: Persistent bilateral opacities most suggestive of pneumonia and/or edema. No appreciable interval change. Dictated by: Leyla Harris M.D. on 11/05/2016 at 8:24 X-RAY CHEST ONE VIEW, PORTABLE IMPRESSION: 1. Diffuse pulmonary edema and/or pneumonia similar to prior examination and persistent right pleural effusion is present. Dictated by: Blake Stubbs [facility] Interpreted: Leyla Harris MD on 11/04/2016 at 8:25 Other Diagnostics ABG DateTimeAnalyzed 05:42:00 -_ pH ____7.482 - 7.350 7.450 pCO2 ___34.9__ -mmHg 35.0 45.0 pO2 ___85.2__ -mmHg 69.0 116 HCO3- ___25.8__ -mmol/L 22.0 26.0 ABG DateTimeAnalyzed 14:20:00 -_ pH ____7.442 - 7.350 7.450 pCO2 ___34.1__ -mmHg 35.0 45.0 pO2 ___51.6__ -mmHg 69.0 116 HCO3- ___22.9__ -mmol/L 22.0 26.0 Brief History The patient is a previously relatively healthy 51-year-old gentleman. He states that he was doing well and functioning completely normally until eight days before admission. At that time, he started to develop some weakness, malaise, fever perhaps, and just nonspecific feeling of being ill. This slowly worsened over three or four days and then he gradually started this past weekend to develop a dry cough, as well as more fever, worsening chills, sweats , severe headache and some right pleuritic chest pain. This eventually led him to the urgent care center on October 31, where he was told he probably had a viral process. It is notable at that time apparently he and his report that he had a fever of 104. In any event, he went home but then returned to the urgent care the next day, where a chest x-ray showed a significant right greater than left pulmonary infiltrate and he was admitted for treatment of pneumonia. The patient reports no sick contacts except for a daughter who had a head cold prior to his infection a week or two ago, but he did not have the same symptoms she did by any means. He notes that as part of this eight day illness his oral intake has dramatically declined, both in terms of food, as well as in terms of just drinking, and he has fairly rapidly worsened over the past 72 hours. The patient was admitted to this facility late on November 01 and started on appropriate antibiotics, including azithromycin and ceftriaxone, for presumptive community-acquired pneumonia. Despite that, the patient has actually worsened considerably and was moving to the ICU because of progressive respiratory distress and the need for high-flow nasal oxygen. The patient reports that some of his worse symptoms include a severe headache, sinus pain, right pleuritic chest pain, ongoing shortness of breath which is quite severe, and just general myalgias and arthralgias. He has not been troubled at all by genitourinary symptoms. While in the hospital here he babb developed diarrhea though and this has led to the ordering of a stool for Cdiff and placement of the patient in isolation for C. diff, but the diarrhea actually did not start until he was admitted to the hospital and placed on antibiotics. Mr. Dagoberto Perez was diagnosed with legionella pneumonia during his stay. Of note the patient works quite a lot, roughly 13 hours per day 6 days per weeks. 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 The patient also reports owning a small cabin that he frequents. The health departments of each [facility] where his employment and cabin are were contacted. Mr. Dagoberto Perez was treated with antibiotics till Nov 11 and his oxygen requirements slowly improved. He remains week but is currently tolerating room air. Hospital Course 51-year-old male with dry cough, headache, weakness, fever, chills for the last week with increasing weakness and ground-level fall the day prior to admission was found to have legionella pneumonia. 1. Acute hypoxic respiratory failure, present on admission. Active and improving. - 2nd to Legionella pneumonia. - Pulmonology has signed off. - CXR as above. ABG as above. - Tolerating Room air. 2. Legionella pneumonia, present on admission, Active. - Azithromycin 500 mg IV daily to PO for one more day. - DuoNebs when necessary. - DuoNeb every 4 hours, guaifenesin every 12 hours - Dr. Lopez with infectious disease has signed off with recommendations. - The patient will require a follow up chest x-ray probably in six weeks or so to demonstrate that his infiltrates have continued to resolve. Note that infiltrates of Legionnaires can take as long as three months to completely resolve but in this 51-year-old gentleman with smoking history, we need to make absolutely sure that the infiltrates do resolve and there is not some hidden malignancy behind the infiltrates. 3. Elevated transaminases, acute. Not present on admission. Improving. - Likely secondary to Legionella pneumonia vs rifampin use. - Monitor CMP. 4.. Mild hyponatremia/elevated creatinine likely prerenal VIDAL, present on admission, resolved - Likely 2nd to legionella pneumonia. 5. Hypokalemia, present on admission, active - Replace with IV potassium 6. Mild thrombocytopenia - Likely 2nd to legionella pneumonia. - hold pharmaceutic DVT prophylaxis 7. Septic encephalopathy, POA. This is gradually improving with treatment of his legionnaires disease. Chronic issues known prior to admission, present on admission Smoker -When necessary nicotine patch High risk meds Disposition: Discharge home today with follow up. Exam Exam General: Alert, Oriented, Cooperative, No Acute Distress Head: Normocephalic, atraumatic. External ears normal. Eyes: PERRLA, EOMI. Anicteric sclerae. Mouth: Mouth Normal, Mucous Membranes Moist/Remer Neck: Neck supple with full range of motion. Chest & Lungs: Wheezes present bilaterally but improving daily. Cardiovascular: Regular Rate/Rhythm, Normal S1, Normal S2, No Murmurs/Rubs/ Gallops Abdomen: Non-tender, Non-distended, No masses, Normoactive bowel tones, Soft Musculoskeletal: Normal Range of Motion Extremities: No cyanosis/clubbing/edema bilaterally Neurological: Grossly Neurologically Intact, Normal Speech Test 11/01/16 15:53 11/02/16 07:15 11/03/16 15:58 11/03/16 17:05 Lactic Acid Level 1.5mmol/L (0.4-2.0) Pro-B-Type Natriuretic Peptide 1671pg/mL (0-121) Vitamin B12 Level 1953pg/mL (211-946) Cryptococcus Antigen Negative (Negative) HIV (1&2) Ag and Ab, 4th Generation Non reactive (Non Reactive) Urine Color Yellow (YELLOW) Urine Appearance Clear (CLEAR,HAZY) Urine pH 6.0 (5.0-8.0) Urine Specific [place] 1.031 (1.003-1.035) Urine Protein 100mg/dL (NEG,TRACE) Urine Glucose (UA) 250mg/dL (NEGATIVE) Urine Ketones Negativemg/dL (NEGATIVE) Urine Occult Blood Moderate (NEGATIVE) Urine Nitrite Negative (NEGATIVE) Urine Bilirubin Negative (NEGATIVE) Urine Urobilinogen Normalmg/dL (NORMAL) Urine Leukocyte Esterase Negative (NEGATIVE) Urine RBC 0-2/hpf (0-2) Urine WBC 0-5/hpf (0-5) Urine Epithelial Cells Few/hpf (NONE-MOD) Urine Crystals Amorphous urates (NONE Urine Bacteria Few/hpf (NONE-FEW) Urine Hyaline Casts Occasional/lpf (NONE) Urine Granular Casts Occasional (NONE SEEN) Urine Waxy Casts None seen (NONE SEEN) Urine Red Blood Cell Casts None seen (NONE SEEN) Urine White Blood Cell Casts None seen (NONE SEEN) Urine Mucus Present (None Seen) Urine Trichomonas None seen (NONE SEEN) Urine Yeast None (NONE SEEN) Urinalysis Comment None Urine Culture Reflexed Not indicated Urine Legionella pneumophilia Ag Positive (Negative) Test 11/06/16 02:50 11/08/16 02:55 11/10/16 02:45 Phosphorus Level 3.2mg/dL (2.5-4.9) Magnesium Level 2.0mg/dL (1.6-2.6) Procalcitonin 0.56ng/mL (0.00-0.08) White Blood Count 7.4th/mm3 (3.8-10.1) Red Blood Count 3.83mil/mm3 (4.40-5.80) Hemoglobin 11.8g/dL (13.8-17.2) Hematocrit 35.7% (41.0-50.0) Mean Corpuscular Volume 93.2fL (81-100) Mean Corpuscular Hemoglobin 30.8pg (27.0-35.0) Mean Corpuscular Hemoglobin Concent 33.1% (32.0-37.0) Red Cell Distribution Width 14.9% (12.3-15.4) Platelet Count 417bil/L (150-400) Neutrophils (%) (Auto) 53.7% (40-74) Lymphocytes (%) (Auto) 25.1% (14-46) Monocytes (%) (Auto) 17.5% (4-12) Eosinophils (%) (Auto) 1.6% (0-5) Basophils (%) (Auto) 0.5% (0-3) Sodium Level 138mEq/L (134-144) Potassium Level 4.6mEq/L (3.5-5.2) Chloride Level 103mEq/L (97-108) Carbon Dioxide Level 26mmol/L (18-29) Blood Urea Nitrogen 12mg/dL (6-24) Creatinine 0.51mg/dL (0.76-1.27) Estimat Glomerular Filtration Rate 181mL/min (>59) Glucose Level 97mg/dL (60-99) Calcium Level 7.8mg/dL (8.5-10.1) Total Bilirubin 0.5mg/dL (0.0-1.2) Aspartate Amino Transf (AST/SGOT) 98U/L (0-50) Alanine Aminotransferase (ALT/SGPT) 108U/L (0-44) Alkaline Phosphatase 67U/L (25-150) Total Protein 5.3g/dL (6.4-8.4) Albumin 2.5g/dL (3.4-5.0) Discharge Medications Discharge Medications Amoxicillin/Clav K 875-125 mg (Augmentin 875-125 mg) 1 Each Tablet 1 TABLET PO BID Prescribed by: JESSA GUERRERO DO Levofloxacin (Levaquin) 750 Mg Tablet 750 MG PO DAILY Prescribed by: JESSA GUERRERO DO As needed Acetaminophen (Acetaminophen) 325 Mg Tablet 650 MG PO Q4H PRN PRN For Fever ( Reported) Ibuprofen (Ibuprofen) 400 Mg Tablet 400 MG PO QID PRN PRN For Pain (Reported) Additional med instructions Azithromycin 500 mg once a day for 1 more day. Followup Plan Follow-up plan Follow up with your primary care physician in 1 weeks time. - At that time you should address activity levels and note whether or not there has been improvement in the last 5 days. - Discuss a plan for returning back to work. - Continue to Stop smoking. Do not return to work until you meet with your primary care physician within 1 week. Furthermore, The patient will require a follow up chest x-ray probably in six weeks or so to demonstrate that his infiltrates have continued to resolve. Note that infiltrates of Legionnaires can take as long as three months to completely resolve but in this 51-year-old gentleman with smoking history, we need to make absolutely sure that the infiltrates do resolve and there is not some hidden malignancy behind the infiltrates. Discharge Diet: No restrictions Discharge Activity: No restrictions Patient Instructions Furthermore, The patient will require a follow up chest x-ray probably in six weeks or so to demonstrate that his infiltrates have continued to resolve. Note that infiltrates of Legionnaires can take as long as three months to completely resolve but in this 51-year-old gentleman with smoking history, we need to make absolutely sure that the infiltrates do resolve and there is not some hidden malignancy behind the infiltrates. Continue to use your Acapella and incentive spirometer. Follow-up Provider: Michael Eng DO Follow-up with PCP in: 1 week Time spent Greater than 30 minutes was spent in preparation of discharge with greater than 50% of that time dedicated to patient counseling and coordination of care. . Attending Statement The patient was seen and examined together with Dr. Clay on 11/10/2016 and I agree with the history, exam and plan as outlined in the note above. . MISA CLAY DO Nov 24, 2016 06:39 Jose Ponce MD Nov 26, 2016 16:26
== END 2016-11-10 13:45 | disposition home or self-care (01) | DRG 177 ==
LOC: SED 13:51 → MPC 17:01 → CCU 11-03 14:59 → PCC 11-07 14:27
PROVIDERS: ADMIT Urology; ATTEND Urology
PROC: 4A033R1 Measurement of Arterial Saturation, Peripheral, Percutaneous Approach (ICD-10-PCS; principal; 2016-11-03)
DX: A48.1 Legionnaires' disease (principal); G93.41 Metabolic encephalopathy; J96.01 Acute respiratory failure with hypoxia; E87.2 Acidosis; N17.9 Acute kidney failure, unspecified; F10.239 Alcohol dependence with withdrawal, unspecified; F17.210 Nicotine dependence, cigarettes, uncomplicated; D69.6 Thrombocytopenia, unspecified; E87.6 Hypokalemia; R19.7 Diarrhea, unspecified

== ENCOUNTER 2016-11-16 10:42 | Emergency (ER) | payer OTHER ==
[~2016-11-16] VITALS: Ht 180.3 cm; Wt 75.5 kg
[~2016-11-16 10:42] MED LIST: ACET325T51 PO; IBUP400T22 PO
[2016-11-16 10:45] VITALS: BP 135/79; PULSE 85; RESP 10; O2SAT 96
--- NOTE | 2016-11-16 10:54 | ED.REPORT ---
HPI-Chest Pain 40 and Over Date of Service Nov 16, 2016 ED Provider: Dr. Curtis Pt is a 51 y/o male w/ a hx of recently treated pneumonia, otherwise healthy, presenting to the ED c/o intermittent sharp substernal CP onset about 24 hours ago. He c/o associated SOB which he relates is secondary to pleuritic pain. Pt denies increased cough (his spouse says it is increased), fever, peripheral edema. He was discharged about 10 days ago for legionella pneumonia with sepsis. His pain is exacerbated by lying on his side and is relieved by getting up and walking around. These episodes of pain last about 10-15 minutes at a time. He is not on antibiotics and has been taking aspirin and Ibuprofen for pain with no relief. Nursing Notes Stated Complaint: CHEST PAIN Chief Complaint: Chest Pain Nursing Notes Reviewed: Yes Allergies: Coded Allergies: No Known Allergies (Unverified , 11/01/16) Scheduled Amoxicillin/Clav K 875-125 mg (Augmentin 875-125 mg) 1 Each Tablet 1 TABLET PO BID Levofloxacin (Levaquin) 750 Mg Tablet 750 MG PO DAILY Scheduled PRN Acetaminophen (Acetaminophen) 325 Mg Tablet 650 MG PO Q4H PRN PRN For Fever Ibuprofen (Ibuprofen) 400 Mg Tablet 400 MG PO QID PRN PRN For Pain General Time Seen by MD: 10:53 Chief Complaint Chest pain Hx Obtained From: Patient, Spouse Arrived By: Walk-in Sudden in Onset?: No Onset Occurred: 1 day ago Symptom Duration: Intermittent Location: : Substernal Quality: Painful, Sharp Radiation: : Does not radiate Migration/Movement: Reports: None Severity: Current: Mild Severity: Maximum: Moderate Exacerbated by: Deep breath Recent Healthcare: Recent doctor visit, Recent hospitalization Similar Sx Previous: No Past Medical History Past Medical History Hx legionella pneumonia w/ sepsis Past Surgical History None reported Smoking History Unknown if Ever Smoker Ambulatory Status Independent Review of Systems Constitutional: Denies: Chills, Fever Respiratory: Reports: Pleuritic pain, Shortness of breath, Denies: Non-productive cough Cardiovascular: Reports: Chest pain, Denies: Dyspnea on exertion, Edema GI: Denies: Abdominal pain, Nausea, Vomiting Skin: Denies Diaphoresis, Denies Swelling Complete sys rev & neg: except as marked. Physical Exam Initial Vital Signs Vital Signs (First) Date Time Temp Pulse Resp B/P Pulse Ox O2 Delivery O2 Flow Rate FiO2 11/16/16 10:45 36.6 85 10 135/79 96 Room Air 11/16/16 11:42 2 Initial VS: Reviewed, Vital signs normal Head / Eyes: Atraumatic, Normocephalic, PERRL ENT: Mucous membranes moist, Conjunctiva normal, No scleral icterus Neck: Supple, Full range of motion Extremities: Vascular intact, Neuro intact, No swelling, No tenderness Skin: Warm, Dry, No cyanosis Neurologic: Alert, Oriented, Nonfocal Psychiatric: Mood/affect normal, Behavior normal, Normal thought content General/Constitutional: Awake, Alert, No acute distress, Well appearing, Cooperative, Not toxic appearing Respiratory / Chest: Atraumatic, Breath sounds NL, Breath sounds = bilat, No respiratory distress, No rales, No rhonchi, No wheezing, No retractions, No stridor, No chest tenderness, No chest wall deformity, No crepitus Cardiovascular: Heart rate NL, Regular rhythm, Heart sounds NL, No gallop, No murmurs, No rubs, Cap refill not delayed, Peripheral circulation NL Abdomen: Atraumatic, Soft, Non-tender, No guarding, No rebound, No distention, No palpable mass Interpretation & Diagnostics Lab Results Interpretation Result Diagram: 11/16/16 1100 11/16/16 1100 Test 11/16/16 11:00 White Blood Count 8.1th/mm3 (3.8-10.1) Red Blood Count 4.16mil/mm3 (4.40-5.80) Hemoglobin 12.7g/dL (13.8-17.2) Hematocrit 38.9% (41.0-50.0) Mean Corpuscular Volume 93.5fL (81-100) Mean Corpuscular Hemoglobin 30.5pg (27.0-35.0) Mean Corpuscular Hemoglobin Concent 32.6% (32.0-37.0) Red Cell Distribution Width 14.4% (12.3-15.4) Platelet Count 480bil/L (150-400) Neutrophils (%) (Auto) 50.3% (40-74) Lymphocytes (%) (Auto) 23.6% (14-46) Monocytes (%) (Auto) 20.0% (4-12) Eosinophils (%) (Auto) 3.0% (0-5) Basophils (%) (Auto) 2.5% (0-3) D-Dimer 4.4mg/L (<0.50) Sodium Level 137mEq/L (134-144) Potassium Level 4.5mEq/L (3.5-5.2) Chloride Level 100mEq/L (97-108) Carbon Dioxide Level 25mmol/L (18-29) Blood Urea Nitrogen 19mg/dL (6-24) Creatinine 0.49mg/dL (0.76-1.27) Estimat Glomerular Filtration Rate 190mL/min (>59) Glucose Level 100mg/dL (60-99) Calcium Level 8.8mg/dL (8.5-10.1) Magnesium Level 2.0mg/dL (1.6-2.6) Total Bilirubin 0.3mg/dL (0.0-1.2) Aspartate Amino Transf (AST/SGOT) 59U/L (0-50) Alanine Aminotransferase (ALT/SGPT) 97U/L (0-44) Alkaline Phosphatase 92U/L (25-150) Troponin T 0.010ug/L (0.0-0.011) Pro-B-Type Natriuretic Peptide 76.65pg/mL (0-121) Total Protein 7.2g/dL (6.4-8.4) Albumin 3.0g/dL (3.4-5.0) ECG Interpretation ECG Interpretation: Sinus rhythm rate 75 Peaked hyperacute T waves diffusely EKG taken during chest pain Time: 11:40 Interpreted by: ED physician Normal ECG Interpretation: No acute ischemic changes X-Ray Chest Interpretation Chest Xray Interpretation: IMPRESSION: Persistent air space opacities in the lung bases suspicious for residual multifocal pneumonia. Dictated by: Qi Hinson MD, PhD on 11/16/2016 at 12:18 Approved by: Qi Hinson MD, PhD on 11/16/2016 at 12:20 View: Portable, AP & lat Interpretation / Wet Read by: Interpret - Radiologist CT Chest Interpretation IMPRESSION: 1. No acute pulmonary embolus. 2. Right lower lobe consolidation and pleural effusion suspicious for lobar pneumonia. 3. Right hilar adenopathy, likely infectious in nature. However, short interval surveillance is recommended to resolution of these findings to exclude underlying neoplasm. Dictated by: Tawnya Flowers M.D. on 11/16/2016 at 13:28 Approved by: Tawnya Flowers M.D. on 11/16/2016 at 13:33 Study type: CT pulm angiogram Interpretation / Wet Read by: Interpret - Radiologist Re-Eval/Medical Decision Med Decision/Clinical Course Lobar pneumonia, curb 65 score is 0, will plan to discharge Augmentin and Levaquin. Return and follow-up precautions given Source of Hx: Old records Time of Eval: 13:40 Patient Status: Condition improved, Mild relief Re-Evaluation/Progress Note: Pt rechecked. Informed pt of plan for treatment. Pt understands and agrees with plan for treatment. F/U and RTER warnings given. All questions addressed. Counseled Regarding: Diagnosis, Lab results, Need for follow-up, When/why to return to ED Discharge & Departure Primary Impression: Right lower lobe pneumonia Pneumonia type: due to unspecified organism Qualified Code: J18.9 - Pneumonia, unspecified organism Disposition: Home Discharge Condition All VS Reviewed: Yes Condition: Stable Patient Instructions: Bacterial Pneumonia (ED) Additional Instructions: Your chest CT scan today shows signs of a right lower lobe pneumonia. I believe outpatient treatment is appropriate at this time. There was no sign of heart attack or blood clot in the lung. Take the full course of Augmentin and Levofloxacin as directed. Use 600 mg Ibuprofen every 6 hours as needed for pain. Return to the emergency department if you develop severe shortness of breath, profound weakness/lethargy, uncontrolled/persistent high fever, persistent vomiting, severe pain, or for other concerning symptoms. Follow-up with your primary care doctor tomorrow as scheduled. Referrals: Michael Eng DO (PCP) Giselle Attestation Portions of this note were transcribed by Rom Guevara. I, Dr. Curtis personally performed the history, physical exam and medical decision-making; I reviewed and confirmed the accuracy of the information in the transcribed note. Signed by Giselle Schmidt, 11/16/16 - 1200 copies to: Michael Eng Timothy S DO Nov 16, 2016 10:54 ROM GUEVARA Nov 16, 2016 11:07
[2016-11-16] MEDS ORDERED: Ondansetron 2 mg/mL 2 mL Inj IVPUSH PRN (11:30)
[2016-11-16 11:38] LABS: BASOPHILS % (AUTO) 2.5 % (0-3); Mean Corpuscular Hemoglobin 30.5 pg (27.0-35.0); Mean Corpuscular Volume 93.5 fL (81-100); NEUTROPHILS % (AUTO) 50.3 % (40-74); Platelet Count 480 bil/L (150-400)
[2016-11-16 11:42] VITALS: BP 126/65; PULSE 76; RESP 18; O2SAT 96
[2016-11-16 12:05] LABS: TROPONIN T 0.01 ug/L (0.0-0.011)
--- NOTE | 2016-11-16 12:22 | DRSVH ---
PROCEDURE: X-RAY CHEST, TWO VIEWS ([id number]) INDICATIONS: chest pain TECHNIQUE: 2 views of the chest were acquired. COMPARISON: [facility], CR, XR CHEST 1VW (PORTABLE), 11/09/2016, 4:36. [facility], CR, XR CHEST 2VW, 11/01/2016, 10:34. FINDINGS: Surgical changes and devices: None. Lungs and pleura: Small right-sided pleural fluid collection is noted.. Patchy air space passing the right lung base has decreased in size. Small focal airspace opacity noted in the left lung base. Mediastinum: Mediastinal contours are normal. Heart size is normal. Bones and chest wall: No suspicious bony abnormalities. Soft tissues appear unremarkable. IMPRESSION: Persistent air space opacities in the lung bases suspicious for residual multifocal pneum onia. Dictated by: Qi Hinson MD, PhD on 11/16/2016 at 12:18 Approved by: Qi Hinson MD, PhD on 11/16/2016 at 12:20
[2016-11-16 12:25] VITALS: BP 123/71; RESP 24; O2SAT 94
--- NOTE | 2016-11-16 13:35 | DRSVH ---
PROCEDURE: CT ANGIO CHEST PULMONARY EMBOLISM ([id number]) INDICATIONS: chest pain elevated ddimer TECHNIQUE: After the administration of intravenous contrast, 2 mm thick sections acquired from the pulmonary api emiliano to the posterior costophrenic angles. 3-dimensional maximum intensity projection (MIP) coronal a nd sagittal reformats were then acquired through the thorax. For radiation dose reduction, the follo wing was used: automated exposure control, adjustment of mA and/or kV according to patient size. COMPARISON: None. FINDINGS: Image quality: Excellent. Pulmonary arteries: Pulmonary arteries are normal in size, and demonstrate no intraluminal filling d efects to suggest central pulmonary embolism. Lungs and pleura: Mild paraseptal emphysema is present at the apices. Focal consolidation is present within the dependent portions of the right lower lobe. Air bronchograms are present in this region. T here is a small low density right and a trace of low-density left pleural effusion. Mild compressive atelectasis is present at the left lung base. Trace patchy air space opacities are present within the right middle lobe and lingula. No pneumothorax. Mediastinum: Heart size is normal, without pericardial effusion. No mediastinal adenopathy. There is an enlarged right hilar lymph node which measures 1.7 mm in diameter. Thoracic aorta is normal in ca liber and enhancement. Esophagus is normal in caliber, without hiatal hernia. Bones and chest wall: No suspicious bony lesions. Ribs and thoracic spine appear intact throughout. Thyroid gland is unremarkable.. No axillary or supraclavicular adenopathy. Abdomen: Visualized upper abdominal solid organs appear normal in the early arterial phase of enhanc ement. IMPRESSION: 1. No acute pulmonary embolus. 2. Right lower lobe consolidation and pleural effusion suspicious for lobar pneumonia. 3. Right hilar adenopathy, likely infectious in nature. However, short interval surveillance is recom mended to resolution of these findings to exclude underlying neoplasm. Dictated by: Tawnya Flowers M.D. on 11/16/2016 at 13:28 Approved by: Tawnya Flowers M.D. on 11/16/2016 at 13:33
[2016-11-16] MEDS ORDERED: levoFLOXacin 750 mg Tablet PO ONE (13:40)
[2016-11-16] MEDS ORDERED: Amoxicillin-Clav 875-125 mg Tablet PO ONE (13:40)
[2016-11-16] MEDS ORDERED: LEVO750T9 PO (13:42)
[2016-11-16] MEDS ORDERED: AMOX-366 PO (13:42)
[2016-11-16 13:51] VITALS: BP 122/67; PULSE 72; RESP 16; O2SAT 95
[2016-11-16 13:59] VITALS: BP 122/67; PULSE 72; RESP 16; O2SAT 95
== END 2016-11-16 13:59 | disposition home or self-care (01) ==
LOC: SED 10:42
DX: J18.9 Pneumonia, unspecified organism (principal)
CPT/HCPCS: 36415; 71020; 71275; 80053; 83735; 83880; 84484; 85025; 85379; 87040; 93005; 96374; 96375; 99285; J2270; J2405; Q9967